=== PATIENT | male | born 1975 | race Caucasian/White ===

== ENCOUNTER 2017-01-09 17:21 | Inpatient (IN) | payer BC, OTHER ==
[~2017-01-09] VITALS: Ht 182.9 cm; Wt 128.9 kg
[~2017-01-09 17:21] MED LIST: NITROGLYCERIN 50 MG/D5W 250 ML BTL ONE
[2017-01-09 17:24] VITALS: Ht 182.9 cm; Wt 128.9 kg
[2017-01-09] MEDS ORDERED: PIPER-TAZO 3.375 GM IV (PMX) 100 ML IVPB STA (17:31)
[2017-01-09] MEDS ORDERED: SODIUM CHLORIDE 0.9% 1L BAG IV* STA (17:31)
[2017-01-09 17:57] LABS: ADD SCAN DIFF NO
[2017-01-09 17:59] LABS: BASOPHIL # 0.1 10^3/ul (0.0-0.1); BASOPHILS % 0.4 % (0.0-2.0); EOSINOPHILS # 0.1 10^3/ul (0.0-0.5); EOSINOPHILS % 0.6 % (0.0-7.0); HEMATOCRIT 43.1 % (42.0-52.0); HEMOGLOBIN 14.9 g/dl (14.0-18.0); LYMPHOCYTES # 2.1 10^3/ul (0.8-2.9); LYMPHOCYTES % 18.5 % (15.0-51.0); MEAN CORPUSCULAR HEMOGLOBIN 30.3 pg (29.0-33.0); MEAN CORPUSCULAR HGB CONC 34.6 g/dl (32.0-37.0); MEAN CORPUSCULAR VOLUME 87.8 fl (82.0-101.0); MEAN PLATELET VOLUME 11.9 fl (7.4-10.4); MONOCYTE # 0.6 10^3/ul (0.3-0.9); MONOCYTES % 4.9 % (0.0-11.0); NEUTROPHIL # 8.4 10^3/ul (1.6-7.5); PLATELET COUNT 232 10^3/UL (140-415); RED BLOOD COUNT 4.91 10^6/ul (4.70-6.10); RED CELL DISTRIBUTION WIDTH 12.8 % (11.5-14.5); WHITE BLOOD COUNT 11.2 10^3/ul (4.8-10.8)
[2017-01-09] MEDS ORDERED: LABETALOL HCL 20MG INJ IV ONE (18:00)
[2017-01-09] MEDS ORDERED: VANCOMYCIN 1 GM (PMX) 250 ML IVPB ONE (18:00)
[2017-01-09 18:08] LABS: INR 0.91; PARTIAL THROMBOPLASTIN TIME 25.4 Sec (25.0-35.0); PROTIME 12.3 Sec (12.2-14.2)
[2017-01-09 18:13] LABS: ALBUMIN 5.1 g/dl (3.3-4.9); ALBUMIN/GLOBULIN RATIO 1.7; BILIRUBIN,INDIRECT 0.2 mg/dl (0-1.1); BILIRUBIN,TOTAL 0.2 mg/dl (0.2-1.3); CALCIUM 9.4 mg/dl (8.4-10.2); CREATININE 1.33 mg/dl (0.61-1.24); TOTAL PROTEIN 8.1 g/dl (6.1-8.1)
[2017-01-09 18:24] LABS: CK-MB 2.52 ng/ml (0.0-2.4); TROPONIN-I 0.102 ng/ml (0.00-0.12)
[2017-01-09] MEDS ORDERED: hydrALAzine 20 MG INJ IV ONE ×2 (18:30→22:00)
--- NOTE | 2017-01-09 18:39 | RADRPT ---
PROCEDURE: XR Chest. CLINICAL INDICATION: Sepsis TECHNIQUE: Single AP view of the chest were obtained COMPARISON: None FINDINGS: The heart is prominently enlarged. The pulmonary vasculature are prominent. The aorta is obscured. Bilateral interstitial opacities are seen without focal consolidation. There is no pleural effusi on or pneumothorax. There is no gross acute osseous abnormality. IMPRESSION: Prominent cardiomegaly. Pulmonary vascular congestion and edema is present without consolidation, effusion, or pneumothorax. RPTAT: AA .Elena King MD, Date Time Electronically viewed and signed by .Elena King MD, on 01/09/2017 18:39 .J/
[2017-01-09] MEDS ORDERED: NITROGLYCERIN (SL) 0.4 MG TAB SL ONE (19:00)
[2017-01-09 19:22] LABS: ADD UMIC YES; URINE BILIRUBIN (Dip) NEGATIVE (NEGATIVE); URINE BLOOD (Dip) NEGATIVE (NEGATIVE); URINE COLOR LT. YELLOW (YELLOW); URINE GLUCOSE (Dip) NEGATIVE (NEGATIVE); URINE KETONES (Dip) NEGATIVE (NEGATIVE); URINE LEUKOCYTE ESTERASE (Dip) NEGATIVE (NEGATIVE); URINE NITRITE (Dip) NEGATIVE (NEGATIVE); URINE TOTAL PROTEIN (Dip) 1+ (NEGATIVE); URINE UROBILINOGEN (Dip) 0.2 E.U./dL (0.1-1.0)
[2017-01-09] MEDS ORDERED: FUROSEMIDE 20 MG INJ IV ONE (19:30)
[2017-01-09] MEDS ORDERED: ASPIRIN 81 MG TAB PO ONE (19:30)
[2017-01-09] MEDS ORDERED: LORAZEPAM 2 MG INJ IV ONE ×2 (19:30→22:00)
[2017-01-09] MEDS: NITROGLYCERIN 50 MG/D5W (PMX) 250 ML IV SCH (19:34)
[2017-01-09 19:36] LABS: MUCUS,URINE FEW; TRANSITIONAL EPI CELLS,URINE FEW; URINE RBCS NONE SEEN /HPF (0)
--- NOTE | 2017-01-09 20:05 | RADRPT ---
PROCEDURE: XR Chest. CLINICAL INDICATION: Chest pain TECHNIQUE: Single frontal chest x-ray. COMPARISON: 01/09/2017, 06:20 p.m. FINDINGS: No acute infiltrate, pleural effusion or pneumothorax is identified. There is stable moderate cardi omegaly and mild pulmonary vascular congestion. The osseous structures are unremarkable. IMPRESSION: 1. Stable moderate cardiomegaly and mild pulmonary vascular congestion. 2. No significant interval change. RPTAT: VV .Tod Vásquez MD, MD Date Time Electronically viewed and signed by .Tod Vásquez MD, MD on 01/09/2017 20:04 .R/
--- NOTE | 2017-01-09 20:12 | RADRPT ---
PROCEDURE: CT brain without contrast CLINICAL INDICATION: Headaches. High blood pressure TECHNIQUE: A CT of the brain was performed utilizing axial sections from the skull base through th e vertex without contrast. Sagittal and coronal images were also reformatted. The exam CTDIvol = 43. 58 mGy and DLP = 720.23 mGy-cm. COMPARISON: None available FINDINGS: No acute intracranial hemorrhage is identified. There is no mass effect or midline shift. No extra -axial fluid collection is seen. The ventricles and sulci are within normal limits for size and con figuration. The density of the brain is within normal limits. Jasmine-white differentiation is preser ashleigh. The osseous structures are unremarkable. Incidental benign sebaceous cyst is suspected within the sc alp anteriorly on the right The mastoid air cells and visualized paranasal sinuses are clear. Athero sclerotic calcification of the vertebral arteries at the foramen magnum is noted. RPTAT:HJJR IMPRESSION: 1. Unremarkable noncontrast CT of the brain. 2. Atherosclerotic calcification of the vertebral arteries. Physician Rob Date Time Electronically viewed and signed by Physician Rob on 01/09/2017 20:11 /
--- NOTE | 2017-01-09 20:16 | CONS ---
DATE OF ADMISSION: 01/09/2017 DATE OF CONSULTATION: 01/09/2017 REFERRING PHYSICIAN: Dr. Hopkins from the emergency room REASON FOR CONSULTATION: Rule out ST elevation myocardial infarction. CHIEF COMPLAINT: Not feeling well, short of breath, left-sided numbness. HISTORY OF PRESENT ILLNESS: Thank you for this referral. History obtained from the patient, valery cummings with Dr. Hopkins. This is a 41-year-old gentleman with history of coronary artery post-IL and PC I 3 years ago, currently taking no cardiac medication, history of severe hypertension who presented with above complaint. The patient said in the past 1 or 2 days, he has been not feeling well. Has had intermittent numbness in his left side. He also complained of shortness of breath and some ches t discomfort as well. Could not describe it well. Multiple EKGs were done. Code STEMI was activat ed because it was felt by the EKG, possibly a STEMI. The patient was immediately evaluated by loren juárez, appeared to be in respiratory distress and severe hypertension. Blood pressure has been as high as 268/162. Also chest x-ray showed congestive heart failure. EKG was personally reviewed, did not meet the criteria for a STEMI. STEMI was canceled. The patient to get a stat head CT to rule out CVA. PAST MEDICAL HISTORY: History of coronary artery disease, status post IL, status post PCI; history of hypertension, history of dyslipidemia. SOCIAL HISTORY: The patient stated he quit about a week ago. Has not followed any doctor over the past few years. Does not take any medication including does not even take aspirin. The patient occ asionally uses alcohol and does use marijuana, including today. FAMILY HISTORY: Possibly positive for coronary artery disease. ALLERGIES: NO REPORTED DRUG ALLERGIES. HAS HAD SOME REACTION TO SOME MEDICATION BEFORE BUT DOES NO T EVEN KNOW. REVIEW OF SYSTEMS: As above. PHYSICAL EXAMINATION: VITAL SIGNS: Temperature 98.4, heart rate of 93, blood pressure of 244/160, respiratory rate of 25, saturating 98%. HEENT: Normocephalic, atraumatic. Appears to be in respiratory distress and anxious. CARDIOVASCULAR: Tachycardic, systolic murmur. PULMONARY: With no wheezes. VASCULAR: Pulses bilaterally, 2+ radial. GASTROINTESTINAL: Obese, soft, nontender. EXTREMITIES: With trivial lower extremity edema. NEUROLOGIC: Awake, alert. LABORATORY: Sodium 145, potassium is 4, BUN of 18, creatinine 1.33, glucose of 148. Lactic acid 2. 6. Total CK 229. Troponin of 0.1. Albumin is 5.1. Chest x-ray was personally reviewed, which mary ellen wed pulmonary vascular congestion, congestive heart failure. EKG was personally reviewed, showed si nus tachycardia with LVH and ST-T abnormality suggestive of repolarization abnormalities. It does n ot meet the criteria for STEMI by my review. ASSESSMENT AND PLAN: 1. Hypertensive urgency. 2. Left-sided weakness, rule out acute cerebrovascular accident. 3. Chest pain, rule acute coronary syndrome. 4. History of coronary artery disease. 5. History of dyslipidemia. 6. Severe hypertension due to poor compliance. 7. Congestive heart failure, acute on chronic, probably related to diastolic heart failure and poss ibly even systolic heart failure. 8. History of tobacco use. 9. History of marijuana use. 10. Noncompliant with medication. RECOMMENDATIONS: The patient has received aspirin in the emergency room. At this point, I do not s ee any benefit from emergent cardiac catheterization. He needs to be stabilized. I have asked the nurses to start the patient on nitroglycerin drip and give a dose of Lasix. CT of the head also nee ds to be done to rule out acute CVA. Blood pressure control needs to be done better. We will obtai n serial cardiac enzymes and echocardiogram. The patient is to be admitted to ICU for close monitor ing. More than 35 minutes critical care time was spent in management of this patient excluding any proced ures. Dictated By: SRI RIVERS/CARMINA Conf#: [id number] DID#: [id number] CC: HERNAN HOPKINS DO;*EndCC*
--- NOTE | 2017-01-09 21:45 | ERA ---
ER Documentation Chief Complaint Date/Time DATE: 01/09/17 TIME: 21:39 Chief Complaint SHARP PAIN @ CHEST PAIN, DIZZINESS, HEADACHE, NAUSEA SINCE YESTERDAY HPI This 41-year-old male presents to the ER for sharp chest pain as well as dizziness headache and and nausea. This began all yesterday. The chest pain is left-sided and described as a sharpness. He has no nausea and has not vomited. He has had chills and he thinks he has had fevers and has had a new onset cough for the last few days.. He has been sweating. He has a history of cardiac stents. Patient has not been taking any medications lately. ROS All systems reviewed and are negative except as per history of present illness. Physical Exam Vitals Vital Signs Date Time Temp Pulse Resp B/P Pulse Ox O2 Delivery O2 Flow Rate FiO2 01/09/17 20:30 98.2 103 21 189/119 98 Nasal Cannula 4.0 01/09/17 19:30 98.2 103 21 189/129 98 Nasal Cannula 4.0 01/09/17 19:00 3.0 01/09/17 18:30 98.4 93 25 146/162 98 Nasal Cannula 2.0 01/09/17 18:25 98.6 97 16 244/159 100 01/09/17 18:00 Nasal Cannula 2 01/09/17 17:24 98.6 113 19 268/162 98 Physical Exam Const: [] Mild distress, appears uncomfortable Head: Atraumatic Eyes: Normal Conjunctiva ENT: Normal External Ears, Nose and Mouth. Neck: Full range of motion..~ No meningismus. Resp: Clear to auscultation bilaterally Cardio: Regular tachycardia, no murmurs Abd: Soft, non tender, non distended. Normal bowel sounds Skin: No petechiae or rashes, mildly diaphoretic Back: No midline or flank tenderness Ext: No cyanosis, or edema Neur: Awake and alert and oriented 3, no focal deficits, cranial nerves II through XII intact, cerebellar finger to nose normal Psych: Anxious Result Diagram: 01/09/17 1745 01/09/17 1745 Results 24 hrs Laboratory Tests Test 01/09/17 17:45 01/09/17 18:00 01/09/17 19:28 White Blood Count 11.210^3/ul Red Blood Count 4.9110^6/ul Hemoglobin 14.9g/dl Hematocrit 43.1% Mean Corpuscular Volume 87.8fl Mean Corpuscular Hemoglobin 30.3pg Mean Corpuscular Hemoglobin Concent 34.6g/dl Red Cell Distribution Width 12.8% Platelet Count 68209^3/UL Mean Platelet Volume 11.9fl Neutrophils % 75.0% Lymphocytes % 18.5% Monocytes % 4.9% Eosinophils % 0.6% Basophils % 0.4% Nucleated Red Blood Cells % 0.0/100WBC Neutrophils # 8.410^3/ul Lymphocytes # 2.110^3/ul Monocytes # 0.610^3/ul Eosinophils # 0.110^3/ul Basophils # 0.110^3/ul Nucleated Red Blood Cells # 0.010^3/ul Prothrombin Time 12.3Sec Prothrombin Time Ratio 1.0 INR International Normalized Ratio 0.91 Activated Partial Thromboplast Time 25.4Sec Sodium Level 145mmol/L Potassium Level 4.0mmol/L Chloride Level 109mmol/L Carbon Dioxide Level 24mmol/L Anion Gap 16 Blood Urea Nitrogen 18mg/dl Creatinine 1.33mg/dl Glucose Level 148mg/dl Lactic Acid Level 2.6mmol/L 2.6mmol/L Calcium Level 9.4mg/dl Total Bilirubin 0.2mg/dl Direct Bilirubin 0.00mg/dl Indirect Bilirubin 0.2mg/dl Aspartate Amino Transf (AST/SGOT) 25IU/L Alanine Aminotransferase (ALT/SGPT) 35IU/L Alkaline Phosphatase 83IU/L Creatine Kinase 229IU/L Creatine Kinase Index 1.1 Creatinine Kinase MB (Mass) 2.52ng/ml Troponin I 0.102ng/ml Total Protein 8.1g/dl Albumin 5.1g/dl Globulin 3.00g/dl Albumin/Globulin Ratio 1.70 Urine Color LT. YELLOW Urine Clarity CLEAR Urine pH 5.5 Urine Specific [place] 1.025 Urine Ketones NEGATIVE Urine Nitrite NEGATIVE Urine Bilirubin NEGATIVE Urine Urobilinogen 0.2 E.U./dL Urine Leukocyte Esterase NEGATIVE Urine Microscopic RBC NONE SEEN/HPF Urine Microscopic WBC 0-2/HPF Urine Transitional Epithelial Cells FEW Urine Mucus FEW Urine Hemoglobin NEGATIVE Urine Glucose NEGATIVE% Urine Total Protein 1+ Current Medications Medications (Trade) Dose Ordered Sig/Thao Route PRN Reason Start Time Stop Time Status Last Admin Dose Admin Sodium Chloride 3950 ml 3,950 ml BOLUS OVER 2 HOURS STAT IV* 01/09/17 17:31 01/09/17 17:36 DC 01/09/17 17:59 Vancomycin HCl 250 ml @ 125 mls/hr ONCE ONCE IVPB 01/09/17 18:00 01/09/17 19:59 DC 01/09/17 18:32 Piperacillin Sod/ Tazobactam Sod (Zosyn 3.375gm/ 100 ml (Pmx)) 100 ml @ 200 mls/hr ONCE STAT IVPB 01/09/17 17:31 01/09/17 18:00 DC 01/09/17 17:59 Labetalol HCl (Labetalol) 25 mg ONCE ONCE IV 01/09/17 18:00 01/09/17 18:01 DC 01/09/17 18:00 Hydralazine HCl (Apresoline) 20 mg ONCE ONCE IV 01/09/17 18:30 01/09/17 18:31 DC 01/09/17 18:33 Nitroglycerin (Nitroglycerin (Sl Tab) 0.4 Mg) 1 tab ONCE ONCE SL 01/09/17 19:00 01/09/17 19:01 DC 01/09/17 19:04 Aspirin 324 mg 324 mg ONCE ONCE PO 01/09/17 19:30 01/09/17 19:31 DC 01/09/17 19:08 Nitroglycerin/ Dextrose (Nitroglycerin 50 Mg/D5W (Pmx)) 250 ml @ 10 mls/hr TITRATE IV 01/09/17 19:30 01/09/17 19:34 Lorazepam (Ativan) 1 mg ONCE ONCE IV 01/09/17 19:30 01/09/17 19:31 DC 01/09/17 19:23 Furosemide (Lasix) 20 mg ONCE ONCE IV 01/09/17 19:30 01/09/17 19:31 DC 01/09/17 19:35 Procedures/MDM Hypertensive crisis with chest pain and sirs criteria without source. This point I do not think an infectious etiology is likely. Patient had refractory hypertension the required labetalol which produced no result followed by hydralazine 20 which helped followed by nitroglycerin drip she was able to bring the patient's blood pressure down. He was given aspirin. Head CT was obtained which showed no brain bleed. Patient did seem to decompensate acutely with severe chest pain after he had been here for some time. Repeat EKG showed ST elevation in aVR as well as ST depressions in lateral leads. I called Dr. Barragan who came and saw the patient did not believe this was a STEMI. He did recommend 20 mg of Lasix and continue nitro drip. Mild leukocytosis without evidence of pneumonia. Patient was given both vancomycin and Zosyn initially for aureus sepsis and ill-appearing patient with cough. Congestive heart failure seems more likely with tachycardia related to the stress of his chest pain and severe hypertension. Spoke with Dr. schmitt who will be admitting. EKG interpretation #1: Sinus tachycardia rate of 101, left axis deviation, LVH, normal intervals, no ST or T-wave changes concerning for acute ischemia. Nonspecific ST-T wave changes EKG interpretation #2: Sinus tachycardia rate of 105, ST elevation in aVR, lateral ST depressions, findings suspicious for ischemia, left axis deviation. real estate executive assistant interpretation: Sinus tachycardia without other arrhythmia Chest x-ray interpretation: Cardiomegaly with engorgement of pulmonary vasculature, no pneumothorax, no obvious infiltrates, no fractures acutely CT head interpretation: I see no acute process. I see no hemorrhage, no mass- effect, no midline shift, no skull fractures Critical care time 57 minutes: This includes treatment of hypertensive crisis and emergency with headache and severe chest pain, use of multiple vasoactive medications in attempt to reduce severe refractory hypertension, use of hydralazine, labetalol, nitroglycerin drip, chart reviewed, multiple visits the patient's bedside to reassess status, discussion with opera singer, discussion with admitting doctor and patient. This does not include billable procedures Departure Diagnosis: Primary Impression: Hypertensive crisis Additional Impressions: Congestive heart failure Renal insufficiency Chest pain Acute headache Condition: Critical HERNAN HOPKINS DO Jan 09, 2017 21:45
[2017-01-09] MEDS ORDERED: morphine 4 MG/ML VIAL IV STA (22:21)
[2017-01-09] MEDS ORDERED: NICARDipine HCL 30 MG CAPSULE PO ONE (22:30)
--- NOTE | 2017-01-09 22:53 | QN ---
Documentation Comment [id number] WHIT BINGHAM MD Jan 09, 2017 22:52
[2017-01-09] MEDS ORDERED: ASPIRIN 325 MG TAB PO ONE (23:00)
[2017-01-09] MEDS ORDERED: MAGNESIUM HYDROXIDE 30ML CUP PO PRN (23:00)
[2017-01-09] MEDS ORDERED: BISACODYL (EC) 5 MG TAB PO PRN (23:00)
[2017-01-09] MEDS ORDERED: DOCUSATE SODIUM 100 MG CAP PO PRN (23:00)
[2017-01-09] MEDS ORDERED: ALBUTEROL/IPRATROPIUM (NEB) 3 ML AMP NEB PRN (23:00)
[2017-01-09 23:13] LABS: CHOL/HDL RATIO 5.2 RATIO
[2017-01-09] MEDS: ONDANSETRON 4 MG INJ IV PRN (23:19)
[2017-01-09] MEDS: morphine 2 MG INJ IV PRN (23:19)
[2017-01-10] VITALS (76 sets, daily range): BP systolic 106–187; BP diastolic 57–149; PULSE 89–136; RESP 13–54; TEMP 98
[2017-01-10] MEDS ORDERED: PIPER-TAZO 3.375 GM IV (PMX) 100 ML IVPB ONE
--- NOTE | 2017-01-10 00:04 | HP ---
DATE OF ADMISSION: 01/09/2017 HISTORY OF PRESENT ILLNESS: The patient is a 41-year-old male who has a history of CAD and stent pl acement many years ago. Only takes aspirin. Otherwise, he does list his medication, presented with s hortness of breath and complaining of headache, chest pain. The patient's WBC 11.2, hematocrit 43.1 , sodium 145. The patient's blood pressure recorded as 244/159. The patient was started on nitro d rip and is being seen by Dr. Ventura in consultation for possible STEMI. The patient is being admitte d for further management. PAST MEDICAL HISTORY: Positive for hypertension, diabetic medicine, history of CAD, history of edwin ogram and stent placement. ALLERGY HISTORY: NEGATIVE. FAMILY HISTORY: Diabetes, hypertension. SOCIAL HISTORY: Negative at this point. MEDICATION HISTORY: Takes aspirin. REVIEW OF SYSTEMS HEENT: Headache and some sinus problem. RESPIRATORY: Cough, short of breath. CARDIOVASCULAR: ____ . ABDOMEN: Dyspepsia. EXTREMITIES: No swelling. CENTRAL NERVOUS SYSTEM: Unremarkable except as mentioned above. PHYSICAL EXAMINATION: GENERAL: Obese, overweight male, awake, alert. VITAL SIGNS: Pulse ____ , blood pressure is 189/119. HEAD: Atraumatic, normocephalic. Pupils equal, reactive to light. NECK: Supple. No JVD. LUNGS: With basilar rales, rhonchi noted. CARDIOVASCULAR: S1, S2 normal. ABDOMEN: Soft, obese, bowel sounds present, no palpable mass. EXTREMITIES: There is no cyanosis, clubbing, or edema. CENTRAL NERVOUS SYSTEM: The patient is awake, alert with no focal deficit. LABORATORY DATA: Shows sodium 141, potassium 4.0. Lactic acid 2.6. Creatinine kinase 229. The patient had a chest x-ray cardiomegaly, pulmonary vascular congestion. IMPRESSION: 1. Patient has acute malignant hypertension. 2. Ischemic heart disease or myocardial infarction. 3. History of coronary artery disease. 4. Pulmonary edema. 5. Infiltrate. 6. Acute kidney injury. 7. Coronary artery disease and stent placement. 8. Lactic acidosis. 9. Systemic inflammatory response syndrome. PLAN: To obtain lipid panel, 2D echo. Troponin will be sent. Aspirin, nitro, oxygen, bronchodilat or, antibiotic diuretic. Cardiology consultation. The patient will have lisinopril, Coreg, hydrala zine and QVAR. Orders were done. Dictated By: WHIT CHOE/NTS Conf#: [id number] DID#: [id number]
[2017-01-10] MEDS ORDERED: LABETALOL HCL 20MG INJ IV ONE (00:30)
[2017-01-10] MEDS ORDERED: ASPI-664 PO (00:55)
[2017-01-10] MEDS ORDERED: IBUP200C PO (00:55)
[2017-01-10 01:09] LABS: CK-MB 2.59 ng/ml (0.0-2.4)
[2017-01-10 01:10] LABS: TROPONIN-I 0.155 ng/ml (0.00-0.12)
[2017-01-10] MEDS: ALBUTEROL/IPRATROPIUM (NEB) 3 ML AMP NEB SCH ×6 (01:13→20:25)
[2017-01-10] MEDS ORDERED: LORAZEPAM 2 MG INJ IV ONE ×2 (02:30→17:00)
[2017-01-10] MEDS: NITROGLYCERIN 50 MG/D5W (PMX) 250 ML IV SCH ×5 (05:14→19:08)
[2017-01-10] MEDS: FUROSEMIDE 20 MG INJ IV SCH ×2 (05:44→17:58)
[2017-01-10] MEDS: PANTOPRAZOLE 40 MG INJ IV SCH (05:45)
[2017-01-10] MEDS: ACETAMINOPHEN 325 MG TAB PO PRN ×2 (05:45→14:51)
[2017-01-10] MEDS: morphine 2 MG INJ IV PRN ×4 (06:12→21:20)
[2017-01-10] MEDS: hydrALAzine 20 MG INJ IV PRN ×2 (06:20→16:54)
[2017-01-10 06:39] LABS: ADD SCAN DIFF NO
[2017-01-10 06:42] LABS: BASOPHIL # 0.1 10^3/ul (0.0-0.1); BASOPHILS % 0.4 % (0.0-2.0); EOSINOPHILS % 0.1 % (0.0-7.0); HEMATOCRIT 36.2 % (42.0-52.0); HEMOGLOBIN 12.5 g/dl (14.0-18.0); LYMPHOCYTES # 1.7 10^3/ul (0.8-2.9); LYMPHOCYTES % 11.9 % (15.0-51.0); MEAN CORPUSCULAR HEMOGLOBIN 30.5 pg (29.0-33.0); MEAN CORPUSCULAR HGB CONC 34.5 g/dl (32.0-37.0); MEAN CORPUSCULAR VOLUME 88.3 fl (82.0-101.0); MEAN PLATELET VOLUME 11.7 fl (7.4-10.4); MONOCYTE # 1.1 10^3/ul (0.3-0.9); MONOCYTES % 7.6 % (0.0-11.0); NEUTROPHIL # 11.1 10^3/ul (1.6-7.5); NEUTROPHILS % 79.5 % (39.0-77.0); PLATELET COUNT 218 10^3/UL (140-415); RED CELL DISTRIBUTION WIDTH 13.2 % (11.5-14.5)
[2017-01-10 07:10] LABS: CK-MB 8.85 ng/ml (0.0-2.4); TROPONIN-I 1.37 ng/ml (0.00-0.12)
[2017-01-10 07:51] LABS: ALBUMIN 4.4 g/dl (3.3-4.9); BILIRUBIN,INDIRECT 0.3 mg/dl (0-1.1); BILIRUBIN,TOTAL 0.3 mg/dl (0.2-1.3); CALCIUM 8.9 mg/dl (8.4-10.2); CREATININE 1.37 mg/dl (0.61-1.24); POTASSIUM 3.9 mmol/L (3.5-5.1); TOTAL PROTEIN 6.6 g/dl (6.1-8.1)
[2017-01-10 07:52] LABS: CHOL/HDL RATIO 4.3 RATIO; MAGNESIUM 1.7 mg/dl (1.7-2.5)
[2017-01-10 08:21] LABS: THYROID STIMULATING HORMONE 1.73 MIU/L (0.465-4.680)
[2017-01-10] MEDS ORDERED: LISINOPRIL 10 MG TAB PO SCH (09:00)
[2017-01-10] MEDS: ENOXAPARIN 40 MG/0.4 ML SYG SC SCH (09:48)
--- NOTE | 2017-01-10 10:30 | RADRPT ---
Echocardiogram Report Patient Name: YUMIKO PASTOR Gender: Male Date: 1975 Study Date: 10-Jan-2017 Logging Supervisor: Aleyda Reyes RDCS Location: [facility] Ref. Physician: WHIT BINGHAM Quality: Technically Difficult Study Procedures: Transthoracic echocardiogram with complete 2D, M-Mode, and doppler examination. Indications: Coronary Artery Disease. 2D/M Mode Doppler Measurement Value Normal Ranges Measurement Value Normal Ranges LVIDd 2D 6.9 3.5 - 5.6 cm AV Mean Mason 1.4 m/sec LVIDs 2D 4.2 2.1 - 4.1 cm AV Mean PG 10.0 mmHg FS 2D 39.9 % AV Peak Mason 2.3 m/sec LVPWd 2D 1.3 0.6 - 1.1 cm AV Peak PG 22.0 mmHg IVSd 2D 1.7 0.6 - 1.1 cm AV VTI 30.0 cm IVS/LVPW 2D 1.3 LVOT Mean Mason 1.3 m/sec AoR Diam 2D 3.4 2.0 - 3.7 cm LVOT Mean PG 8.0 mmHg LA/Ao 2D 1 0 - 1 LVOT Peak Mason 1.9 m/sec EDV 2D 329.0 cm3 LVOT Peak PG 14.0 mmHg ESV 2D 71.5 cm3 LVOT VTI 27.1 cm LA Dimen 2D 3.9 2.3 - 4.0 cm TR Peak Mason 2.0 m/sec TR Peak PG 16.0 mmHg RVSP 19.0 mmHg Findings Left Ventricle: Moderate concentric left ventricular hypertrophy. Severe enlargement of left ventricle cavity. Ejection fraction is visually estimated at 35 - 40 %. Multiple segmental wall motion abnormalities. Right Ventricle: Normal right ventricular size. Normal right ventricular systolic function. Left Atrium: The left atrium is normal in size. Right Atrium: The right atrium is normal in size. Mitral Valve: Normal appearance and function of the mitral valve with trace physiologic regurgitation. Aortic Valve: Aortic valve Max velocity 2.34 m/sec. Max PG 22.00 mmHg. Mean PG 10.00 mmHg. Aortic sclerosis without stenosis. Tricuspid Valve: Normal appearance of the tricuspid valve. Estimated peak PA systolic pressure 19 mmHg. There is trace tricuspid regurgitation. Pulmonic Valve: Pulmonic valve not well visualized. Pericardium: Trivial pericardial effusion. There is an anterior echo free space consistent with epicardial fat pad. Aorta: Normal aortic root. IVC: Normal size and normal respiratory collapse consistent with normal right atrial pressure. Conclusions 1.Moderate concentric left ventricular hypertrophy. Severe enlargement of left ventricle cavity. Ejection fraction is visually estimated at 35 - 40 %. Multiple segmental wall motion abnormalities. 2.The left atrium is normal in size. 3.Normal appearance and function of the mitral valve with trace physiologic regurgitation. 4.Aortic valve Max velocity 2.34 m/sec. Max PG 22.00 mmHg. Mean PG 10.00 mmHg. Aortic sclerosis without stenosis. 5.Normal appearance of the tricuspid valve. Estimated peak PA systolic pressure 19 mmHg. There is trace tricuspid regurgitation. 6.Normal size and normal respiratory collapse consistent with normal right atrial pressure. Electronically Signed By: Matheus Ventura 10-Jan-2017 10:29:28 -0700 Patient Name: YUMIKO PASTOR Study Date: 10-Jan-2017 [id number]
[2017-01-10] MEDS ORDERED: DIGOXIN 500 MCG INJ IV ONE (11:00)
[2017-01-10] MEDS: ASPIRIN (EC) 325 MG TAB PO SCH (11:28)
--- NOTE | 2017-01-10 11:40 | PN ---
DATE: 01/10/2017 CARDIOLOGY FOLLOWUP SUBJECTIVE: Discussed with the staff. Rhythm strip was reviewed. The patient remains in sinus rhy thm, sinus tachycardia. Had episodes of recurrent chest pain last night, the pain has resolved. He complains of left arm numbness. His left leg numbness has improved though. No weakness. He also appears to be pretty anxious as well. Still tachycardic. Still hypertensive ____ nitroglycerin dri p in the ICU. MEDICATIONS: Reviewed as per medication reconciliation, personally reviewed. PHYSICAL EXAMINATION: VITAL SIGNS: Temperature 98, heart rate of 120, blood pressure of 130/85, respiratory rate of 22, s aturating 99%. HEENT: Normocephalic, atraumatic. Obese gentleman. Appears to be anxious. On oxygen. CARDIOVASCULAR: Tachycardic. PULMONARY: With no wheezes heard. GASTROINTESTINAL: Obese, soft, nontender. EXTREMITIES: No significant lower extremity edema. NEUROLOGIC: Awake and alert. LABORATORY: Sodium 144, potassium 3.9, BUN of 19, creatinine 1.37, glucose of 116. Troponin has be en 0.15, 0.10, 1.37. Total CK has been 202, 229, 244 with MB fraction of 3.6. ProBNP of 2970, chol esterol 181, LDL of 119, HDL of 42. TSH 1.73. Echocardiogram was also personally reviewed which sh owed dilated left ventricle with ejection fraction of probably about 35% to 40%. There is moderate LVH noted as well. ASSESSMENT AND PLAN: 1. Ulu-LP-ojrsowlef myocardial infarction. 2. Hypertensive urgency. 3. Left-sided weakness, numbness, rule out acute cerebrovascular accident. 4. Coronary artery disease. 5. Noncompliance. 6. Dyslipidemia. 7. Congestive heart failure. 8. Coronary artery disease. 9. ____ cardiomyopathy. 10. History of tobacco ____ marijuana. 11. History of noncompliance with medications. RECOMMENDATIONS: I will increase the Coreg to 25 b.i.d., change the lisinopril to captopril, will c ontinue with the nitroglycerin and titrate it. I highly recommend neurology evaluation. Consider e julienne MRI. If no evidence of stroke is noted and cleared by neurology, we will schedule the patient f or cardiac catheterization. Meanwhile, we will continue with optimizing from the cardiac standpoint . Aspirin will be continued. Continue with the ICU care and nitroglycerin drip as needed. More than 40 minutes of critical care time was spent managing this patient excluding any procedures. Dictated By: SRI DE GUZMAN MD AV/NTS Conf#: [id number] DID#: [id number] CC: WHIT BINGHAM MD;*EndCC*
[2017-01-10] MEDS ORDERED: niCARdipine-D5W 0.1MG/ML DRIP 200 ML ONE (15:13)
[2017-01-10] MEDS ORDERED: niCARdipine-D5W 0.1MG/ML DRIP 200 ML IV SCH (15:30)
[2017-01-10] MEDS ORDERED: HYDROmorphONE 1 MG/ML SYG IV STA (17:41)
--- NOTE | 2017-01-10 23:25 | PN ---
Date/Time of Note Date/Time of Note DATE: 01/10/17 TIME: 23:24 Assessment/Plan VTE Prophylaxis VTE Prophylaxis Intervention: other Lines/Catheters IV [facility]ter Type (from [facility]): Saline Lock Urinary Cath still in place: No Assessment/Plan Chief Complaint/Hosp Course IMPRESSION: 1. Patient has acute malignant hypertension. 2. Ischemic heart disease or myocardial infarction. 3. History of coronary artery disease. 4. Pulmonary edema. 5. Infiltrate. 6. Acute kidney injury. 7. Coronary artery disease and stent placement. 8. Lactic acidosis. 9. Systemic inflammatory response syndrome plan pe cardio bp meds antibiotic mri Problems: Subjective 24 Hr Interval Summary Subjective hx not possible: other (headache+) Respiratory: no complaints Cardiovascular: no complaints Exam/Review of Systems Vital Signs Vitals Vital Signs Date Time Temp Pulse Resp B/P Pulse Ox O2 Delivery O2 Flow Rate FiO2 01/10/17 21:15 97 26 137/76 100 Nasal Cannula 01/10/17 21:00 3.0 01/10/17 19:30 97.8 01/10/17 01:17 21 Intake and Output 01/09/17 01/09/17 01/10/17 15:00 23:00 07:00 Intake Total 350 ml 4900 ml Output Total 600 ml 2400 ml Balance -250 ml 2500 ml Exam Respiratory: diminished breath sounds Cardiovascular: regular rate and rhythm Gastrointestinal: soft Musculoskeletal: nl extremities to inspection Extremities: normal pulses Results Result Diagram: 01/10/17 0632 01/10/17 0523 Results 24 hrs Laboratory Tests Test 01/10/17 05:23 01/10/17 06:32 Sodium Level 144 Potassium Level 3.9 Chloride Level 111 H Carbon Dioxide Level 21 Anion Gap 16 Blood Urea Nitrogen 19 Creatinine 1.37 H Glucose Level 116 Calcium Level 8.9 Magnesium Level 1.7 Total Bilirubin 0.3 Direct Bilirubin 0.00 Indirect Bilirubin 0.3 Aspartate Amino Transf (AST/SGOT) 30 Alanine Aminotransferase (ALT/SGPT) 31 Alkaline Phosphatase 62 Creatine Kinase 244 H Creatine Kinase Index 3.6 Creatinine Kinase MB (Mass) 8.85 H Troponin I 1.370 *H B-Type Natriuretic Peptide 2970 H Total Protein 6.6 # Albumin 4.4 Globulin 2.20 Albumin/Globulin Ratio 2.00 Triglycerides Level 99 Cholesterol Level 181 LDL Cholesterol, Calculated 119 HDL Cholesterol 42 Cholesterol/HDL Ratio 4.3 Thyroid Stimulating Hormone (TSH) 1.730 White Blood Count 14.0 #H Red Blood Count 4.10 L Hemoglobin 12.5 L Hematocrit 36.2 L Mean Corpuscular Volume 88.3 Mean Corpuscular Hemoglobin 30.5 Mean Corpuscular Hemoglobin Concent 34.5 Red Cell Distribution Width 13.2 Platelet Count 218 Mean Platelet Volume 11.7 H Neutrophils % 79.5 H Lymphocytes % 11.9 L Monocytes % 7.6 Eosinophils % 0.1 Basophils % 0.4 Nucleated Red Blood Cells % 0.0 Neutrophils # 11.1 H Lymphocytes # 1.7 Monocytes # 1.1 H Eosinophils # 0.0 Basophils # 0.1 Nucleated Red Blood Cells # 0.0 Free Thyroxine 1.25 Medications Medications Current Medications Nitroglycerin/ Dextrose (Nitroglycerin 50 Mg/D5W (Pmx)) 250 ml @ 10 mls/hr TITRATE IV Last administered on 01/10/17 19:08; Admin Dose 10 MLS/HR; Start 01/09/17 at 19:30 Ondansetron HCl (Zofran Inj) 4 mg Q6H PRN IV NAUSEA AND/OR VOMITING Last administered on 01/09/17 23:19; Admin Dose 4 MG; Start 01/09/17 at 23:00 Nitroglycerin (Nitroglycerin (Sl Tab) 0.4 Mg) 1 tab Q5M PRN SL CHEST PAIN; Start 01/09/17 at 23:00 Acetaminophen (Tylenol Tab) 650 mg Q6H PRN PO PAIN LEVEL 1-3 OR FEVER Last administered on 01/10/17 14:51; Admin Dose 650 MG; Start 01/09/17 at 23:00 Morphine Sulfate (morphine) 2 mg Q4H PRN IV PAIN LEVEL 7-10 Last administered on 01/10/17 21:20; Admin Dose 2 MG; Start 01/09/17 at 23:00 Docusate Sodium (Colace) 100 mg Q12H PRN PO CONSTIPATION; Start 01/09/17 at 23: 00 Magnesium Hydroxide (Milk Of Mag) 30 ml DAILY PRN PO CONSTIPATION; Start at 23:00 Bisacodyl (Dulcolax) 5 mg DAILY PRN PO CONSTIPATION; Start 01/09/17 at 23:00 Pantoprazole (Protonix Iv) 40 mg DAILY@06 IV Last administered on 01/10/17 05: 45; Admin Dose 40 MG; Start 01/10/17 at 06:00 Enoxaparin Sodium (Lovenox) 40 mg DAILY SC Last administered on 01/10/17 09:48 ; Admin Dose 40 MG; Start 01/10/17 at 09:00 Hydralazine HCl (Apresoline) 20 mg Q6 PRN IV sbp>170 Last administered on 16:54; Admin Dose 20 MG; Start 01/09/17 at 23:00 Furosemide (Lasix) 20 mg BID@06,18 IV Last administered on 01/10/17 17:58; Admin Dose 20 MG; Start 01/10/17 at 06:00 Carvedilol (Coreg) 25 mg BID PO Last administered on 01/10/17 21:19; Admin Dose 25 MG; Start 01/10/17 at 21:00 Captopril (Capoten) 50 mg TID PO Last administered on 01/10/17 21:18; Admin Dose 50 MG; Start 01/10/17 at 13:00 Aspirin 325 mg 325 mg DAILY PO Last administered on 01/10/17 11:28; Admin Dose 325 MG; Start 01/10/17 at 11:00 Nicardipine HCl/ Dextrose (Cardene Iv/D5W) 500 ml @ 50 mls/hr TITRATE IV Last administered on 01/10/17 18:07; Admin Dose 100 MLS/HR; Start 01/10/17 at 16:00 WHIT BINGHAM MD Jan 10, 2017 23:25
[2017-01-11] VITALS (79 sets, daily range): BP systolic 84–185; BP diastolic 62–135; PULSE 80–109; RESP 13–33
[2017-01-11] MEDS: morphine 2 MG INJ IV PRN ×5 (00:58→18:37)
[2017-01-11] MEDS: ALBUTEROL/IPRATROPIUM (NEB) 3 ML AMP NEB SCH ×6 (01:23→21:33)
[2017-01-11] MEDS: NITROGLYCERIN 50 MG/D5W (PMX) 250 ML IV SCH ×4 (02:25→18:37)
[2017-01-11] MEDS: ONDANSETRON 4 MG INJ IV PRN (05:21)
[2017-01-11 06:04] LABS: ADD SCAN DIFF NO
[2017-01-11 06:09] LABS: BASOPHIL # 0.1 10^3/ul (0.0-0.1); BASOPHILS % 0.4 % (0.0-2.0); EOSINOPHILS # 0.4 10^3/ul (0.0-0.5); EOSINOPHILS % 2.1 % (0.0-7.0); HEMATOCRIT 37.3 % (42.0-52.0); HEMOGLOBIN 12.7 g/dl (14.0-18.0); LYMPHOCYTES # 1.5 10^3/ul (0.8-2.9); LYMPHOCYTES % 9.2 % (15.0-51.0); MEAN CORPUSCULAR HEMOGLOBIN 30.5 pg (29.0-33.0); MEAN CORPUSCULAR VOLUME 89.7 fl (82.0-101.0); MEAN PLATELET VOLUME 12.1 fl (7.4-10.4); MONOCYTE # 1.5 10^3/ul (0.3-0.9); MONOCYTES % 8.6 % (0.0-11.0); NEUTROPHIL # 13.3 10^3/ul (1.6-7.5); NEUTROPHILS % 79.2 % (39.0-77.0); PLATELET COUNT 243 10^3/UL (140-415); RED BLOOD COUNT 4.16 10^6/ul (4.70-6.10); RED CELL DISTRIBUTION WIDTH 13.3 % (11.5-14.5); WHITE BLOOD COUNT 16.8 10^3/ul (4.8-10.8)
[2017-01-11] MEDS: PANTOPRAZOLE 40 MG INJ IV SCH (06:14)
[2017-01-11] MEDS: FUROSEMIDE 20 MG INJ IV SCH ×2 (06:15→17:28)
[2017-01-11 06:46] LABS: CK-MB 9.98 ng/ml (0.0-2.4); TROPONIN-I 4.91 ng/ml (0.00-0.12)
[2017-01-11 06:49] LABS: ALBUMIN 4.5 g/dl (3.3-4.9); ALBUMIN/GLOBULIN RATIO 1.6; BILIRUBIN,INDIRECT 1.2 mg/dl (0-1.1); BILIRUBIN,TOTAL 1.2 mg/dl (0.2-1.3); CALCIUM 9.4 mg/dl (8.4-10.2); CREATININE 1.38 mg/dl (0.61-1.24); MAGNESIUM 1.8 mg/dl (1.7-2.5); POTASSIUM 3.8 mmol/L (3.5-5.1); TOTAL PROTEIN 7.3 g/dl (6.1-8.1)
[2017-01-11 07:16] LABS: THYROID STIMULATING HORMONE 1.1 MIU/L (0.465-4.680)
--- NOTE | 2017-01-11 07:17 | RADRPT ---
PROCEDURE: MR Brain without contrast. CLINICAL INDICATION: Hypertensive crisis. Left arm numbness and difficulty swallowing TECHNIQUE: Sagittal and axial T1 weighted, axial T2 weighted, coronal GRE, axial diffusion weighte d with ADC mapping, and axial and sagittal FLAIR imaging without contrast. COMPARISON: 01/09/2017 FINDINGS: The study is significantly limited by motion artifact. On the diffusion sequence, there is a curvil inear focus of increased signal in the right posterior medulla with corresponding low signal seen on the ADC map. There is a suggestion of faint abnormal associated signal on the T2-weighted sequence . The axial FLAIR sequence is significantly motion degraded but there is a suggestion of abnormal s ignal on the sagittal FLAIR image. No other focus of restricted diffusion is seen. Background of a trophy and chronic microvascular ischemic change is again seen. Grossly patent intracranial flow vo ids again seen. The orbits are grossly unremarkable. The visualized paranasal sinuses and mastoids are clear.. IMPRESSION: Study limited by motion artifact but possible subtle subacute infarct in the posterior right medulla . No associated hemorrhage. RPTAT: HLBE Physician Nima Date Time Electronically viewed and signed by Physician Nima on 01/11/2017 07:16 LE/
[2017-01-11] MEDS: SPIRONOLACTONE 25 MG TAB PO SCH (08:37)
--- NOTE | 2017-01-11 08:41 | PN ---
DATE: 01/11/2017 CARDIOLOGY FOLLOWUP PROGRESS NOTE AND CRITICAL CARE NOTE SUBJECTIVE: Discussed with the staff. Rhythm strip was reviewed. The patient still remains hypert ensive on Cardene drip as well as nitroglycerin drip. Intermittently has complained of severe pain, appears ____ right arm where he has the IV site. Also complains of right-sided chest pain, no more left-sided chest pain or pressure. He complains of left arm numbness, though. MEDICATIONS: Reviewed as per medication reconciliation, personally reviewed. PHYSICAL EXAMINATION: VITAL SIGNS: Temperature 98.7, heart rate of 98, blood pressure 139/73, respiratory rate of 22, sat urating 100%. HEENT: Normocephalic, atraumatic. Obese gentleman. Pupils are equal. CARDIOVASCULAR: Regular rate and rhythm, systolic murmur. PULMONARY: With no wheezes heard. Minimal rhonchi. GASTROINTESTINAL: Obese, soft, nontender. EXTREMITIES: With trivial lower extremity edema. NEUROLOGIC: Awake, alert, oriented x3. PSYCHIATRIC: Agitated. LABORATORY: Shows sodium 135, potassium 3.8, BUN of 22, creatinine 1.38, glucose of 130, magnesium 1.8. ALT of 36. AST of 57. Troponin of 4.9 with CK up to 4.93 with MB fraction of only 9.98. Pro BNP of 2390. Cholesterol of 180, LDL of 124, HDL of 42. MRI of the brain per radiology report show ed ____ with possible start of subacute infarct in the posterior right medulla. No associated hemor rhage. ASSESSMENT: 1. [id number]-laypjhnqe myocardial infarction. 2. Hypertensive urgency. 3. Most likely cerebrovascular accident. 4. History of coronary artery disease and percutaneous coronary intervention. 5. History of noncompliance. 6. History of severe hypertension. 7. Dyslipidemia. 8. Congestive heart failure. 9. Severe ischemic cardiomyopathy. 10. History of tobacco use and marijuana use. 11. Encephalopathy and agitation. RECOMMENDATIONS: I will increase the captopril to 100 mg t.i.d. Will start the patient on Aldacton e as well. Electrolytes will be corrected as needed. Awaiting neurology recommendations. Once the patient is cleared from neurology standpoint, I will proceed with the cardiac catheterization. Williams l need to make sure that from neurological standpoint the patient is able to tolerate aspirin, Plavi x, most likely full anticoagulation as well. Coreg will be continued at a high dose. Try to titrat e off the Cardene drip and ____ titrate off the nitroglycerin as well. Aspirin and statin will be c ontinued. Chest x-ray will be repeated. We will continue with the current diuresis and adjust it a ccordingly. Follow up cardiac enzymes as well. Continue with the ICU care. More than 40 minutes of critical care time was spent in management of this patient excluding any pro cedures. Dictated By: SRI DE GUZMAN MD AV/NTS Conf#: [id number] DID#: [id number] CC: WHIT BINGHAM MD;*EndCC*
--- NOTE | 2017-01-11 10:21 | RADRPT ---
PROCEDURE: XR Chest AP portable CLINICAL INDICATION: CHF TECHNIQUE: An AP portable radiograph of the chest was submitted. COMPARISON: 01/09/2017 FINDINGS: Support Hardware: None Cardiovascular: The heart remains moderately enlarged but the pulmonary vasculature reflecting pulmo nary venous obstruction and with the aorta appearing tortuous. Lung Daily: The lung daily appear clear with no nodule, alveolar infiltrate, or interstitial promi nence evident. Pleural Spaces: No pneumothorax or pleural effusion is identified. Osseous Structures: The osseous structures appear intact. Soft Tissues: The soft tissues appear generous. IMPRESSION: 1. Persistent moderate cardiomegaly with aortic tortuosity and with the pulmonary vasculature refle cting pulmonary venous obstruction. 2. The lung daily and pleural spaces remain clear. Physician Sheron Date Time Electronically viewed and signed by Physician Sheron on 01/11/2017 10:21 /
[2017-01-11] MEDS: ACETAMINOPHEN 325 MG TAB PO PRN ×2 (10:38→19:57)
[2017-01-11] MEDS: ASPIRIN (EC) 325 MG TAB PO SCH (11:11)
[2017-01-11] MEDS: ENOXAPARIN 40 MG/0.4 ML SYG SC SCH (11:15)
[2017-01-11 15:30] LABS: ADD UMIC NO; URINE BILIRUBIN (Dip) NEGATIVE (NEGATIVE); URINE BLOOD (Dip) NEGATIVE (NEGATIVE); URINE COLOR LT. YELLOW (YELLOW); URINE GLUCOSE (Dip) NEGATIVE (NEGATIVE); URINE KETONES (Dip) NEGATIVE (NEGATIVE); URINE LEUKOCYTE ESTERASE (Dip) NEGATIVE (NEGATIVE); URINE NITRITE (Dip) NEGATIVE (NEGATIVE); URINE TOTAL PROTEIN (Dip) NEGATIVE (NEGATIVE); URINE UROBILINOGEN (Dip) 0.2 E.U./dL (0.1-1.0)
[2017-01-11 15:58] LABS: BARBITURATES Negative (NEGATIVE); BENZODIAZEPINES Negative (NEGATIVE); CANNABINOIDS Positive (NEGATIVE); COCAINE Negative (NEGATIVE); OPIATES Positive (NEGATIVE)
--- NOTE | 2017-01-11 17:50 | RADRPT ---
Vent Rate: 121 bpm RR Interval: 0 msec CO Interval: 150 msec QRS Duration: 112 msec QT Interval: 328 msec QTC Interval: 465 msec P-R-T [place]: 49 - -18 - 140 degrees Sinus tachycardia Left ventricular hypertrophy with repolarization abnormality Abnormal ECG Electronically Signed By: Abel Mccallum [id number]
--- NOTE | 2017-01-11 18:40 | PN ---
Date/Time of Note Date/Time of Note DATE: 01/11/17 TIME: 18:38 Assessment/Plan VTE Prophylaxis VTE Prophylaxis Intervention: other Lines/Catheters IV [facility]from [facility] Saline Lock Urinary Cath still in place: No Assessment/Plan Chief Complaint/Hosp Course IMPRESSION: 1. Patient has acute malignant hypertension.better 2. Ischemic heart disease or myocardial infarction. 3. History of coronary artery disease. 4. Pulmonary edema. 5. Infiltrate. 6. Acute kidney injury. 7. Coronary artery disease and stent placement. 8. Lactic acidosis. 9. Systemic inflammatory response syndrome 10 cva plan pe cardio bp meds antibiotic mri seen neuro pending Problems: Subjective 24 Hr Interval Summary ENT: no complaints Respiratory: shortness of breath (better) Cardiovascular: no complaints Gastrointestinal: no complaints Exam/Review of Systems Vital Signs Vitals Vital Signs Date Time Temp Pulse Resp B/P Pulse Ox O2 Delivery O2 Flow Rate FiO2 01/11/17 17:45 95 19 149/91 100 01/11/17 17:00 Room Air 01/11/17 16:53 21 01/11/17 16:15 98.3 01/11/17 05:37 3.0 Intake and Output 01/10/17 01/10/17 01/11/17 15:00 23:00 07:00 Intake Total 998 ml 1022 ml 1270 ml Output Total 700 ml 650 ml 920 ml Balance 298 ml 372 ml 350 ml Exam Neck: supple Respiratory: clear to auscultation Cardiovascular: regular rate and rhythm Gastrointestinal: bowel sounds, soft Results Result Diagram: 01/11/17 0510 01/11/17 0510 Results 24 hrs Laboratory Tests Test 01/11/17 05:10 01/11/17 13:55 White Blood Count 16.8 H Red Blood Count 4.16 L Hemoglobin 12.7 L Hematocrit 37.3 L Mean Corpuscular Volume 89.7 Mean Corpuscular Hemoglobin 30.5 Mean Corpuscular Hemoglobin Concent 34.0 Red Cell Distribution Width 13.3 Platelet Count 243 Mean Platelet Volume 12.1 H Neutrophils % 79.2 H Lymphocytes % 9.2 L Monocytes % 8.6 Eosinophils % 2.1 Basophils % 0.4 Nucleated Red Blood Cells % 0.0 Neutrophils # 13.3 H Lymphocytes # 1.5 Monocytes # 1.5 H Eosinophils # 0.4 Basophils # 0.1 Nucleated Red Blood Cells # 0.0 Sodium Level 135 Potassium Level 3.8 Chloride Level 100 # Carbon Dioxide Level 25 Anion Gap 14 Blood Urea Nitrogen 22 H Creatinine 1.38 H Glucose Level 130 Calcium Level 9.4 Magnesium Level 1.8 Total Bilirubin 1.2 Direct Bilirubin 0.00 Indirect Bilirubin 1.2 H Aspartate Amino Transf (AST/SGOT) 57 #H Alanine Aminotransferase (ALT/SGPT) 36 Alkaline Phosphatase 67 Creatine Kinase 493 #H Creatine Kinase Index 2.0 Creatinine Kinase MB (Mass) 9.98 H Troponin I 4.910 *H B-Type Natriuretic Peptide 2390 H Total Protein 7.3 Albumin 4.5 Globulin 2.80 Albumin/Globulin Ratio 1.60 Triglycerides Level 89 Cholesterol Level 188 LDL Cholesterol, Calculated 124 HDL Cholesterol 46 Cholesterol/HDL Ratio 4.0 Thyroid Stimulating Hormone (TSH) 1.100 Free Thyroxine 1.07 Urine Color LT. YELLOW Urine Clarity CLEAR Urine pH 5.0 Urine Specific [place] 1.010 Urine Ketones NEGATIVE Urine Nitrite NEGATIVE Urine Bilirubin NEGATIVE Urine Urobilinogen 0.2 E.U./dL Urine Leukocyte Esterase NEGATIVE Urine Hemoglobin NEGATIVE Urine Glucose NEGATIVE Urine Total Protein NEGATIVE Urine Opiates Screen Positive Urine Barbiturates Negative Urine Amphetamines Screen Negative Urine Benzodiazepines Screen Negative Urine Cocaine Screen Negative Urine Cannabinoids Positive Medications Medications Current Medications Nitroglycerin/ Dextrose (Nitroglycerin 50 Mg/D5W (Pmx)) 250 ml @ 10 mls/hr TITRATE IV Last administered on 01/11/17 18:37; Admin Dose 10 MLS/HR; Start 01/09/17 at 19:30 Ondansetron HCl (Zofran Inj) 4 mg Q6H PRN IV NAUSEA AND/OR VOMITING Last administered on 01/11/17 05:21; Admin Dose 4 MG; Start 01/09/17 at 23:00 Nitroglycerin (Nitroglycerin (Sl Tab) 0.4 Mg) 1 tab Q5M PRN SL CHEST PAIN; Start 01/09/17 at 23:00 Acetaminophen (Tylenol Tab) 650 mg Q6H PRN PO PAIN LEVEL 1-3 OR FEVER Last administered on 01/11/17 10:38; Admin Dose 650 MG; Start 01/09/17 at 23:00 Morphine Sulfate (morphine) 2 mg Q4H PRN IV PAIN LEVEL 7-10 Last administered on 01/11/17 18:37; Admin Dose 2 MG; Start 01/09/17 at 23:00 Docusate Sodium (Colace) 100 mg Q12H PRN PO CONSTIPATION; Start 01/09/17 at 23: 00 Magnesium Hydroxide (Milk Of Mag) 30 ml DAILY PRN PO CONSTIPATION Last administered on 01/11/17 05:29; Admin Dose 30 ML; Start 01/09/17 at 23:00 Bisacodyl (Dulcolax) 5 mg DAILY PRN PO CONSTIPATION; Start 01/09/17 at 23:00 Pantoprazole (Protonix Iv) 40 mg DAILY@06 IV Last administered on 01/11/17 06: 14; Admin Dose 40 MG; Start 01/10/17 at 06:00 Enoxaparin Sodium (Lovenox) 40 mg DAILY SC Last administered on 01/11/17 11:15 ; Admin Dose 40 MG; Start 01/10/17 at 09:00 Hydralazine HCl (Apresoline) 20 mg Q6 PRN IV sbp>170 Last administered on 16:54; Admin Dose 20 MG; Start 01/09/17 at 23:00 Furosemide (Lasix) 20 mg BID@06,18 IV Last administered on 01/11/17 17:28; Admin Dose 20 MG; Start 01/10/17 at 06:00 Carvedilol (Coreg) 25 mg BID PO Last administered on 01/11/17 08:37; Admin Dose 25 MG; Start 01/10/17 at 21:00 Aspirin 325 mg 325 mg DAILY PO Last administered on 01/11/17 11:11; Admin Dose 325 MG; Start 01/10/17 at 11:00 Nicardipine HCl/ Dextrose (Cardene Iv/D5W) 500 ml @ 50 mls/hr TITRATE IV Last administered on 01/11/17 04:46; Admin Dose 100 MLS/HR; Start 01/10/17 at 16:00 Captopril (Capoten) 100 mg TID PO Last administered on 01/11/17 12:28; Admin Dose 100 MG; Start 01/11/17 at 09:00 Spironolactone (Aldactone) 25 mg DAILY PO Last administered on 01/11/17 08:37; Admin Dose 25 MG; Start 01/11/17 at 09:00 WHIT BINGHAM MD Jan 11, 2017 18:40
[2017-01-11] MEDS: NITROGLYCERIN (SL) 0.4 MG TAB SL PRN ×2 (20:03→20:16)
[2017-01-11] MEDS ORDERED: HYDROmorphONE 4 MG/ML SYG IV PRN (20:30)
[2017-01-11] MEDS ORDERED: morphine 2 MG INJ IV ONE (21:00)
[2017-01-11] MEDS: ATORVASTATIN 80 MG TAB PO SCH (21:07)
[2017-01-11 21:24] LABS: CK-MB 4.82 ng/ml (0.0-2.4); TROPONIN-I 3.56 ng/ml (0.00-0.12)
--- NOTE | 2017-01-11 21:48 | CONS ---
DATE OF ADMISSION: 01/09/2017 DATE OF CONSULTATION: 01/11/2017 TYPE OF CONSULTATION: Neurological. Thank you, Dr. Ferrer, for your kind referral for evaluation of stroke. HISTORY OF PRESENT ILLNESS: The patient is a 42-year-old gentleman who was admitted day before yest devon. He has history of myocardial infarction and stent placement about 3 years ago as well as hyp ertension. He stated that he was not taking any medications but different natural supplements with exception of aspirin, which he was taking on daily basis. He presented with a few days of not feeli ng well, complaining of intermittent numbness on the left side, also shortness of breath, chest disc omfort. On admission, very high blood pressure as 268/162. Congestive heart failure on chest x-ray . Software Configuration Manager was seeing him. The patient also complains of a droopy right eye, intermittent doub le vision. He was complaining of headaches and also intermittent dizziness. He already has MRI of the brain which shows presence of a right medullary stroke. EKG: Sinus rhythm. Echocardiogram was done showing moderate concentric right ventricular hypertrophy, enlargement of left ventricular cav ity, ejection fraction 35 to 40. Software Configuration Manager, Dr. Ventura, is on case. Currently patient complains of pain in the right arm radiating to the shoulder and upper chest area. He stated that has been present since some IV site was infiltrated like couple days ago. He recei ves morphine 2 mg, and it does not seem to help him. Other medications currently: 1. Captopril. 2. Aldactone. 3. Coreg. 4. Nifedipine for blood pressure, systolic below 160. 5. Still on aspirin. 6. He is on Lovenox for DVT prevention. 7. Protonix. 8. Lasix. ALLERGIES: NONE. SOCIAL HISTORY: Social alcohol and marijuana. FAMILY HISTORY: Coronary artery disease. LABORATORY DATA: The patient's labs show WBC count 16.8, hemoglobin 12.7, hematocrit 37.3, neutroph ils 79%. BUN 22, creatinine 1.38 today. Indirect bilirubin 1.2, AST 57. CK 493. Troponin is elev ated, 4.9. BNP 3900. Rest of comprehensive metabolic panel within normal limits. Cholesterol 188, LDL 124. TSH within normal limits as well. Tox screen was positive for opiates and marijuana. Ur inalysis negative. PT, PTT within normal limits. REVIEW OF SYSTEMS: I forgot to mention that patient has problems swallowing and he is currently n.p .o. PHYSICAL EXAMINATION: VITAL SIGNS: Temperature 98.3, pulse 89, respirations 23, blood pressure 139/91. GENERAL: Not in acute distress, lying in bed. HEENT: Normocephalic, atraumatic head. NECK: No carotid bruits. No thyromegaly. LUNGS: Clear to auscultation bilaterally. CARDIAC: Normal cardiac rhythm and sounds. ABDOMEN: Soft, nontender. EXTREMITIES: No cyanosis, clubbing or edema. NEUROLOGIC: He is awake, alert and oriented x3 with fluent speech. He seemed to be in discomfort s econdary to upper chest and right shoulder pain which he is constantly massaging. Fluent speech. C ranial nerve examination shows intact visual daily bilaterally. Pupils about 2 mm, fixed. Extraoc ular movements intact. Gaze horizontal, not sustained nystagmus was observed. Essentially symmetri nia face. Normal facial strength and decreased sensation on the left hemiface to temperature and pa in. Tongue is in midline. Palate elevates symmetrically. Motor strength examination shows normal bulk, strength and tone throughout. Sensory examination shows diminution of perception of vibration , temperature, pinprick and touch in the left upper and lower extremities. Deep tendon reflexes 2+ upper extremities and knees. Absent ankle jerks. Downgoing toes bilaterally. Coordination preserv ed on [id number] testing. No dysmetria or tremor. Gait was not assessed. IMPRESSION: 1. Acute ischemic stroke, several days' duration in the right medullar area. 2. Myocardial infarction. 3. Hypertensive urgency. 4. Ischemic cardiomyopathy. 5. History of tobacco and marijuana use. Keep patient normotensive and euglycemic. Will start when he passes swallow study patient on statin . Swallow study is pending. Given chest pain or musculoskeletal pain in the right shoulder and upp er chest area which is somewhat reproducible by deep palpation and not responsive to morphine, will start on Dilaudid 1 mg p.r.n. Will obtain MRA of the brain and neck for further evaluation. Physic al therapy when patient stable for it. Continue current treatment otherwise. 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 I forgot to mention that he has, on top of absence of ankle jocelyn ks, somewhat diminished perception of pinprick and vibration in the right foot and hand. Will check hemoglobin A1c level. Thank you very much for this interesting consultation. Dictated By: AGUILA JULIAN/CARMINA Conf#: [id number] DID#: [id number]
[2017-01-12] VITALS (83 sets, daily range): BP systolic 106–199; BP diastolic 37–129; PULSE 70–101; RESP 16–34
[2017-01-12] MEDS: NITROGLYCERIN 50 MG/D5W (PMX) 250 ML IV SCH ×4 (00:09→20:06)
[2017-01-12] MEDS: morphine 2 MG INJ IV PRN ×3 (00:29→13:07)
[2017-01-12] MEDS: ALBUTEROL/IPRATROPIUM (NEB) 3 ML AMP NEB SCH ×6 (00:43→21:44)
[2017-01-12] MEDS: PANTOPRAZOLE 40 MG INJ IV SCH (06:01)
[2017-01-12] MEDS: FUROSEMIDE 20 MG INJ IV SCH ×2 (06:02→18:41)
[2017-01-12 06:53] LABS: ADD SCAN DIFF NO
[2017-01-12 07:00] LABS: BASOPHIL # 0.1 10^3/ul (0.0-0.1); BASOPHILS % 0.4 % (0.0-2.0); EOSINOPHILS # 0.4 10^3/ul (0.0-0.5); EOSINOPHILS % 3.7 % (0.0-7.0); HEMATOCRIT 33.3 % (42.0-52.0); HEMOGLOBIN 11.6 g/dl (14.0-18.0); LYMPHOCYTES # 1.4 10^3/ul (0.8-2.9); LYMPHOCYTES % 12.3 % (15.0-51.0); MEAN CORPUSCULAR HEMOGLOBIN 30.9 pg (29.0-33.0); MEAN CORPUSCULAR HGB CONC 34.8 g/dl (32.0-37.0); MEAN CORPUSCULAR VOLUME 88.8 fl (82.0-101.0); MONOCYTE # 1.1 10^3/ul (0.3-0.9); MONOCYTES % 9.3 % (0.0-11.0); NEUTROPHIL # 8.5 10^3/ul (1.6-7.5); NEUTROPHILS % 73.7 % (39.0-77.0); PLATELET COUNT 203 10^3/UL (140-415); RED BLOOD COUNT 3.75 10^6/ul (4.70-6.10); WHITE BLOOD COUNT 11.6 10^3/ul (4.8-10.8)
[2017-01-12 07:29] LABS: ALBUMIN 4.3 g/dl (3.3-4.9); ALBUMIN/GLOBULIN RATIO 1.72; BILIRUBIN,INDIRECT 0.5 mg/dl (0-1.1); BILIRUBIN,TOTAL 0.5 mg/dl (0.2-1.3); CALCIUM 9.3 mg/dl (8.4-10.2); CREATININE 1.41 mg/dl (0.61-1.24); MAGNESIUM 2.1 mg/dl (1.7-2.5); POTASSIUM 4.3 mmol/L (3.5-5.1); TOTAL PROTEIN 6.8 g/dl (6.1-8.1)
[2017-01-12 07:49] LABS: CK-MB 3.35 ng/ml (0.0-2.4); TROPONIN-I 3.36 ng/ml (0.00-0.12)
--- NOTE | 2017-01-12 08:09 | PN ---
DATE: 01/12/2017 CARDIOLOGY FOLLOWUP SUBJECTIVE: Discussed with the staff. Rhythm strip was reviewed. The patient remains in sinus rhy thm, sinus tachycardia. No chest pain, no pressure on the left side overnight. Has had intermitten t right-sided chest pain and arm pain. Still complaining of numbness. Still in the ICU, on a nitro glycerin drip. Cardene drip is off though. MEDICATIONS: Reviewed, as per medication reconciliation, which was personally reviewed. PHYSICAL EXAMINATION: VITAL SIGNS: Temperature 98.4, heart rate of 74, blood pressure 150/90, respiratory rate of 17, sat urating 96%. HEENT: Normocephalic, atraumatic. Obese gentleman. Appears to be anxious. CARDIOVASCULAR: Regular rate and rhythm, a systolic murmur. PULMONARY: With no wheezes heard now. Minimal rhonchi at the base. GASTROINTESTINAL: Soft, nontender. EXTREMITIES: No significant lower extremity edema. NEUROLOGIC: Awake, alert, oriented x3. PSYCHIATRIC: Anxious. DERMATOLOGIC: No active bleeding. LABORATORY: Sodium 135, potassium 3.8, BUN of 22, creatinine 1.38, glucose of 130, AST of 57, ALT o f 36. Troponin is 3.56 as of last night. Chest x-ray done yesterday shows moderate cardiomegaly, a ortic tortuosity, pulmonary pulmonary venous obstruction. ASSESSMENT AND PLAN: 1. Yuo-KW-iqeuzqrye myocardial infarction. 2. Severe cardiomyopathy, appears to be ischemic. 3. Hypertensive heart disease and severe hypertensive urgency. 4. Acute/subacute cerebrovascular accident. 5. Dyslipidemia. 6. Morbid obesity. 7. Anxiety. 8. History of tobacco and marijuana use. RECOMMENDATIONS: Will continue with the current dose of captopril and carvedilol. Aldactone was ad ded as well. Will replace electrolytes as needed. Follow with neurology recommendations. MRI has been ordered. If okay with neurology, will plan for diagnostic left heart catheterization, coronary angiography, and possible percutaneous coronary intervention. Risks and alternatives were discusse d with the patient in detail, the risks including infection, vascular complications, bleeding compli cations, [place], stroke, arrhythmia, , renal failure, etc., was discussed with the patient. The luis navarro consented to the procedure. Awaiting neurology clearance for the procedure. Will monitor jennifer ceballos in the ICU. A nitroglycerin drip will be continued as well. Aspirin will be continued. More than 40 minutes of critical care time was spent managing this patient, excluding any procedures . Dictated By: SRI DE GUZMAN MD AV/NTS Conf#: [id number] DID#: [id number] CC: WHIT BINGHAM MD;*EndCC*
[2017-01-12] MEDS: HYDROmorphONE 1 MG/ML SYG IV PRN ×3 (08:20→21:27)
[2017-01-12] MEDS: ACETYLCYSTEINE 600 MG CAP PO SCH ×2 (08:21→20:34)
[2017-01-12] MEDS: SPIRONOLACTONE 25 MG TAB PO SCH (08:22)
[2017-01-12] MEDS: ASPIRIN (EC) 325 MG TAB PO SCH (08:27)
[2017-01-12] MEDS: ENOXAPARIN 40 MG/0.4 ML SYG SC SCH (08:28)
[2017-01-12] MEDS: LORAZEPAM 2 MG INJ IV PRN (10:54)
--- NOTE | 2017-01-12 12:22 | RADRPT ---
PROCEDURE: MRA Head and neck without contrast. CLINICAL INDICATION: Neurologic deficit TECHNIQUE: MRA of the brain and neck was performed utilizing 3-D [id number] imaging without in travenous contrast. Source and MIP images were reviewed. COMPARISON: Brain MRI 01/10/2017 FINDINGS: Study is markedly degraded by motion artifact. MRA NECK: The great vessel origins were not included in the field of view. No significant stenosis identified at the cervical segments of the bilateral vertebral arteries or visualized common carotid arteries. There is a tortuous course of the bilateral upper cervical internal carotid arteries without convin cing significant cervical arterial stenosis. MRA BRAIN: Focal narrowing of the right intradural vertebral artery (series 8 image 111, series 4 image 36). F low signal seen within the visualized left vertebral artery and basilar artery. Limited flow signal in the left distal FLAT BED OPERATOR likely artifactual. No anterior circulation large vessel occlusion. A feta l origin right FLAT BED OPERATOR or prominent right posterior communicating artery is seen. IMPRESSION: Study is markedly degraded by motion artifact. MRA NECK: Tortuous course of the bilateral upper cervical internal carotid arteries. No definite stenosis. MRA BRAIN: Focal narrowing of the right intradural vertebral artery. Consider CT angiogram head and neck for fu rther evaluation. Limited flow signal in the left distal FLAT BED OPERATOR is likely artifactual. No anterior circulation large vessel occlusion. RPTAT: AA .Sim Vigil MD, Date Time Electronically viewed and signed by .Sim Vigil MD, MD on 01/12/2017 12:22 .T/
--- NOTE | 2017-01-12 12:22 | RADRPT ---
PROCEDURE: MRA Head and neck without contrast. CLINICAL INDICATION: Neurologic deficit TECHNIQUE: MRA of the brain and neck was performed utilizing 3-D [id number] imaging without in travenous contrast. Source and MIP images were reviewed. COMPARISON: Brain MRI 01/10/2017 FINDINGS: Study is markedly degraded by motion artifact. MRA NECK: The great vessel origins were not included in the field of view. No significant stenosis identified at the cervical segments of the bilateral vertebral arteries or visualized common carotid arteries. There is a tortuous course of the bilateral upper cervical internal carotid arteries without convin cing significant cervical arterial stenosis. MRA BRAIN: Focal narrowing of the right intradural vertebral artery (series 8 image 111, series 4 image 36). F low signal seen within the visualized left vertebral artery and basilar artery. Limited flow signal in the left distal SIDE PULLER likely artifactual. No anterior circulation large vessel occlusion. A feta l origin right SIDE PULLER or prominent right posterior communicating artery is seen. IMPRESSION: Study is markedly degraded by motion artifact. MRA NECK: Tortuous course of the bilateral upper cervical internal carotid arteries. No definite stenosis. MRA BRAIN: Focal narrowing of the right intradural vertebral artery. Consider CT angiogram head and neck for fu rther evaluation. Limited flow signal in the left distal SIDE PULLER is likely artifactual. No anterior circulation large vessel occlusion. RPTAT: AA .Sim Vigil MD, Date Time Electronically viewed and signed by .Sim Vigil MD, MD on 01/12/2017 12:22 .T/
[2017-01-12] MEDS ORDERED: BARIUM SULFATE 135 ML (E-Z HD) PO ONE (12:30)
--- NOTE | 2017-01-12 13:04 | RADRPT ---
PROCEDURE: Video swallow examination of the esophagus CLINICAL INDICATION: Dysphagia, CVA TECHNIQUE: Real time video cine fluoroscopy of the lateral neck was performed. The patient was gi julienne barium in multiple different consistencies by the speech pathologist. Fluoroscopy time: 2.3 min Number of images/cine sequences: 21 COMPARISON: None. FINDINGS: There is pooling of contrast in the vallecula and piriform sinus with penetration. There is evidence of silent aspiration with thin liquids via straw. IMPRESSION: Pooling of contrast in the vallecula and piriform sinus with penetration. Positive for aspiration with thin liquids via straw. Please refer to the speech pathology notes for more information and recommendations. RPTAT: KK .Aryan Denson MD, MD Date Time Electronically viewed and signed by .Aryan Denson MD, on 01/12/2017 13:03 .S/
--- NOTE | 2017-01-12 17:58 | PN ---
Date/Time of Note Date/Time of Note DATE: 01/12/17 TIME: 17:56 Assessment/Plan VTE Prophylaxis VTE Prophylaxis Intervention: other Lines/Catheters IV C[facility] Type (from [facility] Peripheral IV Urinary Cath still in place: No Assessment/Plan Chief Complaint/Hosp Course IMPRESSION: 1. Patient has acute malignant hypertension.better 2. Ischemic heart disease or myocardial infarction. 3. History of coronary artery disease. 4. Pulmonary edema. 5. Infiltrate. 6. Acute kidney injury. 7. Coronary artery disease and stent placement. 8. Lactic acidosis. 9. Systemic inflammatory response syndrome 10 cva plan per cardio bp meds antibiotic mri seen per neuro Problems: Subjective 24 Hr Interval Summary Respiratory: no complaints Cardiovascular: no complaints Gastrointestinal: No diarrhea, No nausea Exam/Review of Systems Vital Signs Vitals Vital Signs Date Time Temp Pulse Resp B/P Pulse Ox O2 Delivery O2 Flow Rate FiO2 01/12/17 16:30 86 23 169/107 Room Air 01/12/17 16:24 96 21 01/12/17 16:00 98.7 01/11/17 05:37 3.0 Intake and Output 01/11/17 01/11/17 01/12/17 14:59 22:59 06:59 Intake Total 1343 ml 1114 ml 689 ml Output Total 2100 ml 2650 ml 800 ml Balance -757 ml -1536 ml -111 ml Exam Neck: supple Respiratory: clear to auscultation Cardiovascular: regular rate and rhythm Gastrointestinal: soft Musculoskeletal: nl extremities to inspection Results Result Diagram: 01/12/17 0537 01/12/17 0537 Results 24 hrs Laboratory Tests Test 01/11/17 20:49 01/12/17 05:37 Creatine Kinase 447 H 376 H Creatine Kinase Index 1.1 0.9 Creatinine Kinase MB (Mass) 4.82 H 3.35 H Troponin I 3.560 *H 3.360 *H White Blood Count 11.6 #H Red Blood Count 3.75 L Hemoglobin 11.6 L Hematocrit 33.3 L Mean Corpuscular Volume 88.8 Mean Corpuscular Hemoglobin 30.9 Mean Corpuscular Hemoglobin Concent 34.8 Red Cell Distribution Width 13.0 Platelet Count 203 Mean Platelet Volume 12.0 H Neutrophils % 73.7 Lymphocytes % 12.3 L Monocytes % 9.3 Eosinophils % 3.7 Basophils % 0.4 Nucleated Red Blood Cells % 0.0 Neutrophils # 8.5 H Lymphocytes # 1.4 Monocytes # 1.1 H Eosinophils # 0.4 Basophils # 0.1 Nucleated Red Blood Cells # 0.0 Sodium Level 136 Potassium Level 4.3 Chloride Level 102 Carbon Dioxide Level 28 Anion Gap 10 Blood Urea Nitrogen 24 H Creatinine 1.41 H Glucose Level 114 Calcium Level 9.3 Magnesium Level 2.1 Total Bilirubin 0.5 Direct Bilirubin 0.00 Indirect Bilirubin 0.5 Aspartate Amino Transf (AST/SGOT) 38 Alanine Aminotransferase (ALT/SGPT) 32 Alkaline Phosphatase 56 B-Type Natriuretic Peptide 618 H Total Protein 6.8 Albumin 4.3 Globulin 2.50 Albumin/Globulin Ratio 1.72 Medications Medications Current Medications Nitroglycerin/ Dextrose (Nitroglycerin 50 Mg/D5W (Pmx)) 250 ml @ 10 mls/hr TITRATE IV Last administered on 01/12/17 14:42; Admin Dose 10 MLS/HR; Start 01/09/17 at 19:30 Ondansetron HCl (Zofran Inj) 4 mg Q6H PRN IV NAUSEA AND/OR VOMITING Last administered on 01/11/17 05:21; Admin Dose 4 MG; Start 01/09/17 at 23:00 Nitroglycerin (Nitroglycerin (Sl Tab) 0.4 Mg) 1 tab Q5M PRN SL CHEST PAIN Last administered on 01/11/17 20:16; Admin Dose 1 TAB; Start 01/09/17 at 23:00 Acetaminophen (Tylenol Tab) 650 mg Q6H PRN PO PAIN LEVEL 1-3 OR FEVER Last administered on 01/11/17 19:57; Admin Dose 650 MG; Start 01/09/17 at 23:00 Morphine Sulfate (morphine) 2 mg Q4H PRN IV MILD TO MODERATE Last administered on 01/12/17 13:07; Admin Dose 2 MG; Start 01/09/17 at 23:00 Docusate Sodium (Colace) 100 mg Q12H PRN PO CONSTIPATION; Start 01/09/17 at 23: 00 Magnesium Hydroxide (Milk Of Mag) 30 ml DAILY PRN PO CONSTIPATION Last administered on 01/11/17 05:29; Admin Dose 30 ML; Start 01/09/17 at 23:00 Bisacodyl (Dulcolax) 5 mg DAILY PRN PO CONSTIPATION; Start 01/09/17 at 23:00 Pantoprazole (Protonix Iv) 40 mg DAILY@06 IV Last administered on 01/12/17 06: 01; Admin Dose 40 MG; Start 01/10/17 at 06:00 Enoxaparin Sodium (Lovenox) 40 mg DAILY SC Last administered on 01/12/17 08:28 ; Admin Dose 40 MG; Start 01/10/17 at 09:00 Hydralazine HCl (Apresoline) 20 mg Q6 PRN IV sbp>170 Last administered on 16:54; Admin Dose 20 MG; Start 01/09/17 at 23:00 Furosemide (Lasix) 20 mg BID@06,18 IV Last administered on 01/12/17 06:02; Admin Dose 20 MG; Start 01/10/17 at 06:00 Carvedilol (Coreg) 25 mg BID PO Last administered on 01/12/17 08:21; Admin Dose 25 MG; Start 01/10/17 at 21:00 Aspirin 325 mg 325 mg DAILY PO Last administered on 01/12/17 08:27; Admin Dose 325 MG; Start 01/10/17 at 11:00 Nicardipine HCl/ Dextrose (Cardene Iv/D5W) 500 ml @ 50 mls/hr TITRATE IV Last administered on 01/11/17 04:46; Admin Dose 100 MLS/HR; Start 01/10/17 at 16:00 Captopril (Capoten) 100 mg TID PO Last administered on 01/12/17 13:14; Admin Dose 100 MG; Start 01/11/17 at 09:00 Spironolactone (Aldactone) 25 mg DAILY PO Last administered on 01/12/17 08:22; Admin Dose 25 MG; Start 01/11/17 at 09:00 Hydromorphone HCl (Dilaudid) 1 mg Q4H PRN IV SEVERE PAIN Last administered on 16:06; Admin Dose 1 MG; Start 01/12/17 at 00:30 Atorvastatin Calcium (Lipitor) 80 mg HS PO Last administered on 01/11/17 21:07 ; Admin Dose 80 MG; Start 01/11/17 at 21:00 Acetylcysteine (Nac) 600 mg BID PO Last administered on 01/12/17 08:21; Admin Dose 600 MG; Start 01/12/17 at 09:00 Lorazepam (Ativan) 1 mg Q6H PRN IV ANXIETY Last administered on 01/12/17t 10:54 ; Admin Dose 1 MG; Start 01/12/17 at 10:00 WHIT BINGHAM MD Jan 12, 2017 17:58
--- NOTE | 2017-01-12 18:33 | RADRPT ---
PROCEDURE: Retroperitoneal US. CLINICAL INDICATION: Acute renal insufficiency, abnormal labs TECHNIQUE: Multiple sonographic images of the retroperitoneum were obtained. The images were revi ewed on a PACS workstation. COMPARISON: No prior studies are available for comparison. FINDINGS: The right kidney measures 10.4 cm. The left kidney measures 13.0 cm. The renal parenchymal echotexture is normal. There is no hydronephrosis. There is no focal renal mass or calcification seen. The bladder is grossly unremarkable. The liver is incidentally noted to demonstrate increased echogenicity, possibly due to fatty infiltr ation. IMPRESSION: Bilateral kidneys are unremarkable. The liver is incidentally noted to demonstrate increased echogenicity, possibly due to fatty infiltr ation. RPTAT: EE Physician Brisa Date Time Electronically viewed and signed by Physician Brisa on 01/12/2017 18:33 /
[2017-01-12] MEDS: ATORVASTATIN 80 MG TAB PO SCH (20:34)
--- NOTE | 2017-01-12 20:39 | CONS ---
Date/Time of Note Date/Time of Note DATE: 01/12/17 TIME: 20:32 Consult Date/Type/Reason Admit Date/Time Jan 09, 2017 at 19:26 Initial Consult Date Type of Consultation: neurology Subjective no acute events. passed swallow for mech soft. Still CP on off, needs card cath Objective Vital Signs Date Time Temp Pulse Resp B/P Pulse Ox O2 Delivery O2 Flow Rate FiO2 01/12/17 18:45 92 28 149/88 98 Room Air 01/12/17 16:24 21 01/12/17 16:00 98.7 01/11/17 05:37 3.0 Intake and Output 01/11/17 01/11/17 01/12/17 15:00 23:00 07:00 Intake Total 1322 ml 1135 ml 759 ml Output Total 2700 ml 2050 ml 1500 ml Balance -1378 ml -915 ml -741 ml Results/Medications Result Diagram: 01/12/17 0537 01/12/17 0537 Results 24 hrs Laboratory Tests Test 01/11/17 20:49 01/12/17 05:37 Creatine Kinase 447 H 376 H Creatine Kinase Index 1.1 0.9 Creatinine Kinase MB (Mass) 4.82 H 3.35 H Troponin I 3.560 *H 3.360 *H White Blood Count 11.6 #H Red Blood Count 3.75 L Hemoglobin 11.6 L Hematocrit 33.3 L Mean Corpuscular Volume 88.8 Mean Corpuscular Hemoglobin 30.9 Mean Corpuscular Hemoglobin Concent 34.8 Red Cell Distribution Width 13.0 Platelet Count 203 Mean Platelet Volume 12.0 H Neutrophils % 73.7 Lymphocytes % 12.3 L Monocytes % 9.3 Eosinophils % 3.7 Basophils % 0.4 Nucleated Red Blood Cells % 0.0 Neutrophils # 8.5 H Lymphocytes # 1.4 Monocytes # 1.1 H Eosinophils # 0.4 Basophils # 0.1 Nucleated Red Blood Cells # 0.0 Sodium Level 136 Potassium Level 4.3 Chloride Level 102 Carbon Dioxide Level 28 Anion Gap 10 Blood Urea Nitrogen 24 H Creatinine 1.41 H Glucose Level 114 Calcium Level 9.3 Magnesium Level 2.1 Total Bilirubin 0.5 Direct Bilirubin 0.00 Indirect Bilirubin 0.5 Aspartate Amino Transf (AST/SGOT) 38 Alanine Aminotransferase (ALT/SGPT) 32 Alkaline Phosphatase 56 B-Type Natriuretic Peptide 618 H Total Protein 6.8 Albumin 4.3 Globulin 2.50 Albumin/Globulin Ratio 1.72 Medications Current Medications Nitroglycerin/ Dextrose (Nitroglycerin 50 Mg/D5W (Pmx)) 250 ml @ 10 mls/hr TITRATE IV Last administered on 01/12/17 20:06; Admin Dose 10 MLS/HR; Start 01/09/17 at 19:30 Ondansetron HCl (Zofran Inj) 4 mg Q6H PRN IV NAUSEA AND/OR VOMITING Last administered on 01/11/17 05:21; Admin Dose 4 MG; Start 01/09/17 at 23:00 Nitroglycerin (Nitroglycerin (Sl Tab) 0.4 Mg) 1 tab Q5M PRN SL CHEST PAIN Last administered on 01/11/17 20:16; Admin Dose 1 TAB; Start 01/09/17 at 23:00 Acetaminophen (Tylenol Tab) 650 mg Q6H PRN PO PAIN LEVEL 1-3 OR FEVER Last administered on 01/11/17 19:57; Admin Dose 650 MG; Start 01/09/17 at 23:00 Morphine Sulfate (morphine) 2 mg Q4H PRN IV MILD TO MODERATE Last administered on 01/12/17 13:07; Admin Dose 2 MG; Start 01/09/17 at 23:00 Docusate Sodium (Colace) 100 mg Q12H PRN PO CONSTIPATION; Start 01/09/17 at 23: 00 Magnesium Hydroxide (Milk Of Mag) 30 ml DAILY PRN PO CONSTIPATION Last administered on 01/11/17 05:29; Admin Dose 30 ML; Start 01/09/17 at 23:00 Bisacodyl (Dulcolax) 5 mg DAILY PRN PO CONSTIPATION; Start 01/09/17 at 23:00 Pantoprazole (Protonix Iv) 40 mg DAILY@06 IV Last administered on 01/12/17 06: 01; Admin Dose 40 MG; Start 01/10/17 at 06:00 Enoxaparin Sodium (Lovenox) 40 mg DAILY SC Last administered on 01/12/17 08:28 ; Admin Dose 40 MG; Start 01/10/17 at 09:00 Hydralazine HCl (Apresoline) 20 mg Q6 PRN IV sbp>170 Last administered on 16:54; Admin Dose 20 MG; Start 01/09/17 at 23:00 Furosemide (Lasix) 20 mg BID@06,18 IV Last administered on 01/12/17 18:41; Admin Dose 20 MG; Start 01/10/17 at 06:00 Carvedilol (Coreg) 25 mg BID PO Last administered on 01/12/17 08:21; Admin Dose 25 MG; Start 01/10/17 at 21:00 Aspirin 325 mg 325 mg DAILY PO Last administered on 01/12/17 08:27; Admin Dose 325 MG; Start 01/10/17 at 11:00 Nicardipine HCl/ Dextrose (Cardene Iv/D5W) 500 ml @ 50 mls/hr TITRATE IV Last administered on 01/11/17 04:46; Admin Dose 100 MLS/HR; Start 01/10/17 at 16:00 Captopril (Capoten) 100 mg TID PO Last administered on 01/12/17 13:14; Admin Dose 100 MG; Start 01/11/17 at 09:00 Spironolactone (Aldactone) 25 mg DAILY PO Last administered on 01/12/17 08:22; Admin Dose 25 MG; Start 01/11/17 at 09:00 Hydromorphone HCl (Dilaudid) 1 mg Q4H PRN IV SEVERE PAIN Last administered on 16:06; Admin Dose 1 MG; Start 01/12/17 at 00:30 Atorvastatin Calcium (Lipitor) 80 mg HS PO Last administered on 01/11/17 21:07 ; Admin Dose 80 MG; Start 01/11/17 at 21:00 Acetylcysteine (Nac) 600 mg BID PO Last administered on 01/12/17 08:21; Admin Dose 600 MG; Start 01/12/17 at 09:00 Lorazepam (Ativan) 1 mg Q6H PRN IV ANXIETY Last administered on 01/12/17 10:54 ; Admin Dose 1 MG; Start 01/12/17 at 10:00 Assessment/Plan Chief Complaint/Hosp Course PHYSICAL EXAMINATION: GENERAL: Not in acute distress, lying in bed. HEENT: Normocephalic, atraumatic head. NECK: No carotid bruits. No thyromegaly. LUNGS: Clear to auscultation bilaterally. CARDIAC: Normal cardiac rhythm and sounds. ABDOMEN: Soft, nontender. EXTREMITIES: No cyanosis, clubbing or edema. NEUROLOGIC: He is awake, alert and oriented x3 with fluent speech.Fluent speech. Cranial nerve examination shows intact visual daily bilaterally. Pupils about 2 mm, smaller on the right. Extraocular movements intact. End gaze horizontal, not sustained nystagmus was observed. Asymmetrical face, right ptosis, no weakness. Normal facial strength and decreased sensation on the left hemiface to temperature and pain. Tongue is in midline. Palate elevates symmetrically. Motor strength examination shows normal bulk, strength and tone throughout. Sensory examination shows diminution of perception of vibration, temperature, pinprick and touch in the left upper and lower extremities. Deep tendon reflexes 2+ upper extremities and knees. Absent ankle jerks. Downgoing toes bilaterally. Coordination preserved on finger-to- finger testing. No dysmetria or tremor. Gait was not assessed. IMPRESSION: Acute ischemic stroke, several days' duration in the right medullar area. Myocardial infarction. CAD Ischemic cardiomyopathy. History of tobacco and marijuana use. Continue current treatment per front end assistant. OK to keep normotensive, euglycemic , cont ASA, statin OK to proceed with card cath MRA suboptimal, poss focal narrowing right vertebral artery Dr. Gray will follow over the weekend Problems: AGUILA ALVAREZ MD Jan 12, 2017 20:39
[2017-01-13] VITALS (41 sets, daily range): BP systolic 129–172; BP diastolic 35–142; PULSE 63–96; RESP 14–36
[2017-01-13] MEDS: LORAZEPAM 2 MG INJ IV PRN ×3 (00:14→23:26)
[2017-01-13] MEDS: NITROGLYCERIN 50 MG/D5W (PMX) 250 ML IV SCH ×4 (00:14→21:31)
[2017-01-13] MEDS: ALBUTEROL/IPRATROPIUM (NEB) 3 ML AMP NEB SCH ×6 (01:52→21:10)
[2017-01-13] MEDS: PANTOPRAZOLE 40 MG INJ IV SCH (05:54)
[2017-01-13] MEDS: HYDROmorphONE 1 MG/ML SYG IV PRN ×2 (05:55→21:48)
[2017-01-13] MEDS: FUROSEMIDE 20 MG INJ IV SCH ×2 (05:55→18:19)
[2017-01-13 07:02] LABS: ADD SCAN DIFF NO
[2017-01-13 07:06] LABS: BASOPHILS % 0.3 % (0.0-2.0); EOSINOPHILS # 0.4 10^3/ul (0.0-0.5); EOSINOPHILS % 3.2 % (0.0-7.0); HEMATOCRIT 35.8 % (42.0-52.0); HEMOGLOBIN 11.9 g/dl (14.0-18.0); LYMPHOCYTES # 1.3 10^3/ul (0.8-2.9); LYMPHOCYTES % 11.8 % (15.0-51.0); MEAN CORPUSCULAR HEMOGLOBIN 29.7 pg (29.0-33.0); MEAN CORPUSCULAR HGB CONC 33.2 g/dl (32.0-37.0); MEAN CORPUSCULAR VOLUME 89.3 fl (82.0-101.0); MEAN PLATELET VOLUME 12.6 fl (7.4-10.4); MONOCYTE # 1.1 10^3/ul (0.3-0.9); MONOCYTES % 9.5 % (0.0-11.0); NEUTROPHIL # 8.4 10^3/ul (1.6-7.5); NEUTROPHILS % 74.3 % (39.0-77.0); PLATELET COUNT 245 10^3/UL (140-415); RED BLOOD COUNT 4.01 10^6/ul (4.70-6.10); WHITE BLOOD COUNT 11.3 10^3/ul (4.8-10.8)
[2017-01-13 07:26] LABS: INR 0.95; PROTIME 12.7 Sec (12.2-14.2)
[2017-01-13 07:37] LABS: ALBUMIN 4.5 g/dl (3.3-4.9); ALBUMIN/GLOBULIN RATIO 1.66; BILIRUBIN,INDIRECT 0.6 mg/dl (0-1.1); BILIRUBIN,TOTAL 0.6 mg/dl (0.2-1.3); CALCIUM 9.2 mg/dl (8.4-10.2); CREATININE 1.4 mg/dl (0.61-1.24); POTASSIUM 4.3 mmol/L (3.5-5.1); TOTAL PROTEIN 7.2 g/dl (6.1-8.1)
[2017-01-13 07:47] LABS: CK-MB 2.01 ng/ml (0.0-2.4); TROPONIN-I 2.09 ng/ml (0.00-0.12)
[2017-01-13] MEDS: ENOXAPARIN 40 MG/0.4 ML SYG SC SCH (09:00)
[2017-01-13] MEDS: ASPIRIN (EC) 325 MG TAB PO SCH (09:37)
[2017-01-13] MEDS: SPIRONOLACTONE 25 MG TAB PO SCH (09:37)
[2017-01-13] MEDS: ACETYLCYSTEINE 600 MG CAP PO SCH ×2 (09:37→20:48)
--- NOTE | 2017-01-13 12:38 | CONS ---
Date/Time of Note Date/Time of Note DATE: 01/13/17 TIME: 12:35 Consult Date/Type/Reason Admit Date/Time Jan 09, 2017 at 19:26 Initial Consult Date 01/13/17 Type of Consultation: neurology Reason for Consultation Right medullary CVA Subjective drowsy, delirious overnight planned for cardiac cath today Objective Vital Signs Date Time Temp Pulse Resp B/P Pulse Ox O2 Delivery O2 Flow Rate FiO2 01/13/17 12:28 83 01/13/17 09:50 20 21 01/13/17 06:15 158/83 96 01/13/17 06:00 Room Air 01/13/17 04:00 99.0 01/11/17 05:37 3.0 Intake and Output 01/12/17 01/12/17 01/13/17 15:00 23:00 07:00 Intake Total 642.5 ml 872.5 ml 337.5 ml Output Total 1200 ml 2300 ml 1000 ml Balance -557.5 ml -1427.5 ml -662.5 ml Exam GENERAL: Not in acute distress, lying in bed. HEENT: Normocephalic, atraumatic head. NECK: No carotid bruits. No thyromegaly. LUNGS: Clear to auscultation bilaterally. CARDIAC: Normal cardiac rhythm and sounds. ABDOMEN: Soft, nontender. EXTREMITIES: No cyanosis, clubbing or edema. NEUROLOGIC: He is awake, alert and oriented x3 with fluent speech.Fluent speech. Cranial nerve examination shows intact visual daily bilaterally. Pupils about 2 mm, smaller on the right 1mm reactive. Extraocular movements intact. End gaze horizontal, not sustained nystagmus was observed. Asymmetrical face, right ptosis, no weakness. Normal facial strength and decreased sensation on the left hemiface to temperature and pain. Tongue is in midline. Palate elevates symmetrically. Motor strength examination shows normal bulk, strength and tone throughout. Sensory examination shows diminution of perception of vibration, temperature, pinprick and touch in the left upper and lower extremities. Deep tendon reflexes 2+ upper extremities and knees. Absent ankle jerks. Downgoing toes bilaterally. Coordination preserved on [id number] testing. No dysmetria or tremor. Gait was not assessed. Results/Medications Result Diagram: 01/13/17 0540 01/13/17 0540 Results 24 hrs Laboratory Tests Test 01/13/17 00:30 01/13/17 05:40 Urine Random Sodium 57 White Blood Count 11.3 H Red Blood Count 4.01 L Hemoglobin 11.9 L Hematocrit 35.8 L Mean Corpuscular Volume 89.3 Mean Corpuscular Hemoglobin 29.7 Mean Corpuscular Hemoglobin Concent 33.2 Red Cell Distribution Width 13.0 Platelet Count 245 # Mean Platelet Volume 12.6 H Neutrophils % 74.3 Lymphocytes % 11.8 L Monocytes % 9.5 Eosinophils % 3.2 Basophils % 0.3 Nucleated Red Blood Cells % 0.0 Neutrophils # 8.4 H Lymphocytes # 1.3 Monocytes # 1.1 H Eosinophils # 0.4 Basophils # 0.0 Nucleated Red Blood Cells # 0.0 Prothrombin Time 12.7 Prothrombin Time Ratio 1.0 INR International Normalized Ratio 0.95 Sodium Level 138 Potassium Level 4.3 Chloride Level 99 Carbon Dioxide Level 28 Anion Gap 15 Blood Urea Nitrogen 23 H Creatinine 1.40 H Glucose Level 107 Calcium Level 9.2 Magnesium Level 2.0 Total Bilirubin 0.6 Direct Bilirubin 0.00 Indirect Bilirubin 0.6 Aspartate Amino Transf (AST/SGOT) 29 Alanine Aminotransferase (ALT/SGPT) 38 Alkaline Phosphatase 71 Creatine Kinase 303 H Creatine Kinase Index 0.7 Creatinine Kinase MB (Mass) 2.01 Troponin I 2.090 *H B-Type Natriuretic Peptide 524 H Total Protein 7.2 Albumin 4.5 Globulin 2.70 Albumin/Globulin Ratio 1.66 Digoxin Level < 0.4 L Medications Current Medications Nitroglycerin/ Dextrose (Nitroglycerin 50 Mg/D5W (Pmx)) 250 ml @ 10 mls/hr TITRATE IV Last administered on 01/13/17 12:19; Admin Dose 10 MLS/HR; Start 01/09/17 at 19:30 Ondansetron HCl (Zofran Inj) 4 mg Q6H PRN IV NAUSEA AND/OR VOMITING Last administered on 01/11/17 05:21; Admin Dose 4 MG; Start 01/09/17 at 23:00 Nitroglycerin (Nitroglycerin (Sl Tab) 0.4 Mg) 1 tab Q5M PRN SL CHEST PAIN Last administered on 01/11/17 20:16; Admin Dose 1 TAB; Start 01/09/17 at 23:00 Acetaminophen (Tylenol Tab) 650 mg Q6H PRN PO PAIN LEVEL 1-3 OR FEVER Last administered on 01/11/17 19:57; Admin Dose 650 MG; Start 01/09/17 at 23:00 Morphine Sulfate (morphine) 2 mg Q4H PRN IV MILD TO MODERATE Last administered on 01/12/17 13:07; Admin Dose 2 MG; Start 01/09/17 at 23:00 Docusate Sodium (Colace) 100 mg Q12H PRN PO CONSTIPATION; Start 01/09/17 at 23: 00 Magnesium Hydroxide (Milk Of Mag) 30 ml DAILY PRN PO CONSTIPATION Last administered on 01/11/17 05:29; Admin Dose 30 ML; Start 01/09/17 at 23:00 Bisacodyl (Dulcolax) 5 mg DAILY PRN PO CONSTIPATION; Start 01/09/17 at 23:00 Pantoprazole (Protonix Iv) 40 mg DAILY@06 IV Last administered on 01/13/17 05: 54; Admin Dose 40 MG; Start 01/10/17 at 06:00 Enoxaparin Sodium (Lovenox) 40 mg DAILY SC Last administered on 01/12/17 08:28 ; Admin Dose 40 MG; Start 01/10/17 at 09:00 Hydralazine HCl (Apresoline) 20 mg Q6 PRN IV sbp>170 Last administered on 16:54; Admin Dose 20 MG; Start 01/09/17 at 23:00 Furosemide (Lasix) 20 mg BID@06,18 IV Last administered on 01/13/17 05:55; Admin Dose 20 MG; Start 01/10/17 at 06:00 Carvedilol (Coreg) 25 mg BID PO Last administered on 01/13/17 09:38; Admin Dose 25 MG; Start 01/10/17 at 21:00 Aspirin 325 mg 325 mg DAILY PO Last administered on 01/13/17 09:37; Admin Dose 325 MG; Start 01/10/17 at 11:00 Nicardipine HCl/ Dextrose (Cardene Iv/D5W) 500 ml @ 50 mls/hr TITRATE IV Last administered on 01/11/17 04:46; Admin Dose 100 MLS/HR; Start 01/10/17 at 16:00 Captopril (Capoten) 100 mg TID PO Last administered on 01/13/17 09:37; Admin Dose 100 MG; Start 01/11/17 at 09:00 Spironolactone (Aldactone) 25 mg DAILY PO Last administered on 01/13/17 09:37; Admin Dose 25 MG; Start 01/11/17 at 09:00 Hydromorphone HCl (Dilaudid) 1 mg Q4H PRN IV SEVERE PAIN Last administered on 05:55; Admin Dose 1 MG; Start 01/12/17 at 00:30 Atorvastatin Calcium (Lipitor) 80 mg HS PO Last administered on 01/12/17 20:34 ; Admin Dose 80 MG; Start 01/11/17 at 21:00 Acetylcysteine (Nac) 600 mg BID PO Last administered on 01/13/17 09:37; Admin Dose 600 MG; Start 01/12/17 at 09:00 Lorazepam (Ativan) 1 mg Q6H PRN IV ANXIETY Last administered on 01/13/17 07:42 ; Admin Dose 1 MG; Start 01/12/17 at 10:00 Assessment/Plan Chief Complaint/Hosp Course 42 yo male active smoker, marijuana use, obesity p/w several days of right medullary CVA likely etiology intracranial atherosclerosis with right vertebral stenosis. Currently being worked up for [place], CAD planned for cardiac cath. Maintain normotensive blood pressure, euglycemia continue aspirin, statin planned for cardiac cath Problems: ASHLYN BUCK MD Jan 13, 2017 12:38
[2017-01-13] MEDS ORDERED: HEPARIN 1000 UNITS/ML 10 ML INJ ONE ×2 (13:47→15:07)
[2017-01-13] MEDS ORDERED: FENTAnyl 50 MCG/ML VIAL ONE (13:48)
[2017-01-13] MEDS ORDERED: VERAPAMIL 5 MG INJ ONE (13:48)
[2017-01-13] MEDS ORDERED: MIDAZOLAM 1 MG/ML 2 ML INJ ONE (13:48)
[2017-01-13] MEDS ORDERED: NITROGLYCERIN (IC) 100 MCG/ML INJ ONE (13:55)
[2017-01-13] MEDS ORDERED: IOHEXOL 350MG/ML 50 ML BTL ONE (15:07)
[2017-01-13] MEDS ORDERED: EPTIFIBATIDE 100 ML IV ONE (15:07)
[2017-01-13] MEDS ORDERED: IODIXANOL LOCM 100 ML BTL ONE (15:07)
[2017-01-13] MEDS ORDERED: SOD CHLORIDE 0.9% 1,000 ML IV SCH (15:19)
--- NOTE | 2017-01-13 16:04 | PN ---
Date/Time of Note Date/Time of Note DATE: 01/13/17 TIME: 16:01 Assessment/Plan VTE Prophylaxis VTE Prophylaxis Intervention: SCD's Lines/Catheters IV Catheter Type (from Nrs): Peripheral IV Urinary Cath still in place: No Assessment/Plan Chief Complaint/Hosp Course 1. Acute malignant hypertension, controlled 2. Ischemic heart disease or myocardial infarction, s/p angioplasty 3. History of coronary artery disease. 4. Pulmonary edema. 5. Infiltrate. 6. Acute kidney injury. 7. Coronary artery disease and stent placement. 8. Lactic acidosis. 9. Systemic inflammatory response syndrome 10 cva 11. Sleep apnea Problems: Assessment/Plan 1. ICU care 2. Continue current regime 3. ID MD dr Olmos 4. Respiratory evaluation for sleep apnea Subjective 24 Hr Interval Summary Constitutional: no complaints Eyes: no complaints Respiratory: no complaints Cardiovascular: chest pain Exam/Review of Systems Vital Signs Vitals Vital Signs Date Time Temp Pulse Resp B/P Pulse Ox O2 Delivery O2 Flow Rate FiO2 01/13/17 12:28 83 01/13/17 09:50 20 21 01/13/17 06:15 158/83 96 01/13/17 06:00 Room Air 01/13/17 04:00 99.0 01/11/17 05:37 3.0 Intake and Output 01/12/17 01/12/17 01/13/17 15:00 23:00 07:00 Intake Total 642.5 ml 872.5 ml 337.5 ml Output Total 1200 ml 2300 ml 1000 ml Balance -557.5 ml -1427.5 ml -662.5 ml Exam Constitutional: alert, oriented Respiratory: clear to auscultation Cardiovascular: regular rate and rhythm Results Result Diagram: 01/13/17 0540 01/13/17 0540 Results 24 hrs Laboratory Tests Test 01/13/17 00:30 01/13/17 05:40 Urine Eosinophils % 0.0 Urine Random Sodium 57 White Blood Count 11.3 H Red Blood Count 4.01 L Hemoglobin 11.9 L Hematocrit 35.8 L Mean Corpuscular Volume 89.3 Mean Corpuscular Hemoglobin 29.7 Mean Corpuscular Hemoglobin Concent 33.2 Red Cell Distribution Width 13.0 Platelet Count 245 # Mean Platelet Volume 12.6 H Neutrophils % 74.3 Lymphocytes % 11.8 L Monocytes % 9.5 Eosinophils % 3.2 Basophils % 0.3 Nucleated Red Blood Cells % 0.0 Neutrophils # 8.4 H Lymphocytes # 1.3 Monocytes # 1.1 H Eosinophils # 0.4 Basophils # 0.0 Nucleated Red Blood Cells # 0.0 Prothrombin Time 12.7 Prothrombin Time Ratio 1.0 INR International Normalized Ratio 0.95 Sodium Level 138 Potassium Level 4.3 Chloride Level 99 Carbon Dioxide Level 28 Anion Gap 15 Blood Urea Nitrogen 23 H Creatinine 1.40 H Glucose Level 107 Calcium Level 9.2 Magnesium Level 2.0 Total Bilirubin 0.6 Direct Bilirubin 0.00 Indirect Bilirubin 0.6 Aspartate Amino Transf (AST/SGOT) 29 Alanine Aminotransferase (ALT/SGPT) 38 Alkaline Phosphatase 71 Creatine Kinase 303 H Creatine Kinase Index 0.7 Creatinine Kinase MB (Mass) 2.01 Troponin I 2.090 *H B-Type Natriuretic Peptide 524 H Total Protein 7.2 Albumin 4.5 Globulin 2.70 Albumin/Globulin Ratio 1.66 Digoxin Level < 0.4 L Medications Medications Current Medications Nitroglycerin/ Dextrose (Nitroglycerin 50 Mg/D5W (Pmx)) 250 ml @ 10 mls/hr TITRATE IV Last administered on 01/13/17 12:19; Admin Dose 10 MLS/HR; Start 01/09/17 at 19:30 Ondansetron HCl (Zofran Inj) 4 mg Q6H PRN IV NAUSEA AND/OR VOMITING Last administered on 01/11/17 05:21; Admin Dose 4 MG; Start 01/09/17 at 23:00 Nitroglycerin (Nitroglycerin (Sl Tab) 0.4 Mg) 1 tab Q5M PRN SL CHEST PAIN Last administered on 01/11/17 20:16; Admin Dose 1 TAB; Start 01/09/17 at 23:00 Acetaminophen (Tylenol Tab) 650 mg Q6H PRN PO PAIN LEVEL 1-3 OR FEVER Last administered on 01/11/17 19:57; Admin Dose 650 MG; Start 01/09/17 at 23:00 Morphine Sulfate (morphine) 2 mg Q4H PRN IV MILD TO MODERATE Last administered on 01/12/17 13:07; Admin Dose 2 MG; Start 01/09/17 at 23:00 Docusate Sodium (Colace) 100 mg Q12H PRN PO CONSTIPATION; Start 01/09/17 at 23: 00 Magnesium Hydroxide (Milk Of Mag) 30 ml DAILY PRN PO CONSTIPATION Last administered on 01/11/17 05:29; Admin Dose 30 ML; Start 01/09/17 at 23:00 Bisacodyl (Dulcolax) 5 mg DAILY PRN PO CONSTIPATION; Start 01/09/17 at 23:00 Pantoprazole (Protonix Iv) 40 mg DAILY@06 IV Last administered on 01/13/17 05: 54; Admin Dose 40 MG; Start 01/10/17 at 06:00 Enoxaparin Sodium (Lovenox) 40 mg DAILY SC Last administered on 01/12/17 08:28 ; Admin Dose 40 MG; Start 01/10/17 at 09:00 Hydralazine HCl (Apresoline) 20 mg Q6 PRN IV sbp>170 Last administered on 16:54; Admin Dose 20 MG; Start 01/09/17 at 23:00 Furosemide (Lasix) 20 mg BID@06,18 IV Last administered on 01/13/17 05:55; Admin Dose 20 MG; Start 01/10/17 at 06:00 Aspirin 325 mg 325 mg DAILY PO Last administered on 01/13/17 09:37; Admin Dose 325 MG; Start 01/10/17 at 11:00 Nicardipine HCl/ Dextrose (Cardene Iv/D5W) 500 ml @ 50 mls/hr TITRATE IV Last administered on 01/11/17 04:46; Admin Dose 100 MLS/HR; Start 01/10/17 at 16:00 Captopril (Capoten) 100 mg TID PO Last administered on 01/13/17 13:17; Admin Dose 100 MG; Start 01/11/17 at 09:00 Spironolactone (Aldactone) 25 mg DAILY PO Last administered on 01/13/17 09:37; Admin Dose 25 MG; Start 01/11/17 at 09:00 Hydromorphone HCl (Dilaudid) 1 mg Q4H PRN IV SEVERE PAIN Last administered on 05:55; Admin Dose 1 MG; Start 01/12/17 at 00:30 Atorvastatin Calcium (Lipitor) 80 mg HS PO Last administered on 01/12/17 20:34 ; Admin Dose 80 MG; Start 01/11/17 at 21:00 Acetylcysteine (Nac) 600 mg BID PO Last administered on 01/13/17 09:37; Admin Dose 600 MG; Start 01/12/17 at 09:00 Lorazepam (Ativan) 1 mg Q6H PRN IV ANXIETY Last administered on 01/13/17 07:42 ; Admin Dose 1 MG; Start 01/12/17 at 10:00 Clopidogrel Bisulfate 75 mg 75 mg DAILY PO ; Start 01/13/17 at 15:30 Sodium Chloride (NS) 1,000 ml @ 75 mls/hr [id number] IV ; Start 01/13/17 at 15:19; Stop 01/14/17 at 04:38 Carvedilol (Coreg) 25 mg TID PO ; Start 01/13/17 at 21:00 ZACK HERRERA Jan 13, 2017 16:04
--- NOTE | 2017-01-13 16:07 | PN ---
DATE: 01/13/2017 CARDIOLOGY FOLLOWUP NOTE Discussed with the staff. Rhythm strip was reviewed. The patient remains in sinus rhythm with freq uent PVCs. No chest pain or pressure now. No palpitation. Still has some right-sided chest pain t chuck. Still anxious and hypertensive, ____ nitroglycerin to be in the ICU. Neuro evaluation is ap preciated as well, and was reviewed. MEDICATIONS: Reviewed. PHYSICAL EXAMINATION: VITAL SIGNS: Temperature 99, heart rate of 83, blood pressure 158/83, respiratory rate of 20. HEENT: Normocephalic, atraumatic. Obese gentleman. Pupils are equal. CARDIOVASCULAR: Regular rate and rhythm. PULMONARY: Anteriorly mild rhonchi. No wheezes. GASTROINTESTINAL: Soft, nontender. EXTREMITIES: Trivial edema. NEUROLOGIC: Awake and alert. PSYCHIATRIC: Anxious, but overall stable. LABORATORY: WBC of 11.3, hemoglobin 11.9, platelets 245. Sodium 138, potassium 4.3, BUN of 23, cre atinine 1.4, glucose 107. Troponin down to 2.09, BNP of 524. Brain MRI with MRA done shows focal n arrowing of right intradural vertebral artery. Brain MRI shows limited by motion artifact and possi ble subacute infarct in the posterior right medulla. ASSESSMENT AND PLAN: 1. Svg-CM-kzpnrtjja myocardial infarction. 2. Congestive heart failure class IV, currently improved. 3. Severe cardiomyopathy. 4. Coronary artery disease, history of percutaneous coronary intervention of the left anterior juanpablo cending. 5. Hypertensive urgency. 6. Morbid obesity. 7. Anxiety exacerbated by marijuana use. 8. Acute cerebrovascular accident. 9. Dyslipidemia. 9. Elevated liver function tests. RECOMMENDATIONS: Patient underwent successful coronary angiogram. Status post percutaneous coronar y intervention of his PDA. We will continue with the aspirin and Plavix was added. I would increas e the carvedilol to t.i.d. and probably eventually if needed will increase dose to 50 mg of Coreg b. i.d. KRIS inhibitor will be continued. Mucomyst was added as well. ____ will be continued. Contin ue with the ICU care. Currently, off of nifedipine drip. Aldactone has been added as well. More than 39 minutes of critical care time was spent managing this patient, excluding any procedures . Dictated By: SRI RIVERS/CARMINA Conf#: [id number] DID#: [id number] CC: WHIT BINGHAM MD;*[facility]*
[2017-01-13 16:35] LABS: PROTEIN/CREAT RATIO 0.1 RATIO
[2017-01-13] MEDS: CLOPIDOGREL 75 MG TAB PO SCH (17:05)
--- NOTE | 2017-01-13 17:58 | SP ---
DATE OF PROCEDURE: 01/13/2017 CARDIOLOGY PROCEDURE NOTE Procedure performed: 1. Left heart catheterization and selective Right and left coronary angiography. 2. angioplasty of the ostium of the PDA using a 3,0 x 12 noncompliant balloon. 3. Moderate sedation of more than 90 minutes VOLUNTEER ASSISTANT: Sri Ventura MD CLINICAL INDICATIONS: This is a 42-year-old gentleman who presented with NSTEMI. His other risk factors include severe hypertension, coronary artery disease, previous PCI, congestive heart failure class IV, severe cardiomyopathy. FINDINGS: 1. Left main coronary is large and normal. 2. Left anterior descending is a large vessel. The mid stent is patent. The rest of the artery also appeared to be patent with less than 20% stenosis. 3. Left circumflex is a large nondominant vessel which appeared to be normal. 4. Right coronary is a large, dominant vessel. It is very tortuous, aneurysmal disease. Distally has about 50% stenosis. It bifurcates to the PDA and posterolateral artery. Posterolateral artery is a very large vessel with about 20% stenosis. PDA has a 90% ostial stenosis and other 70% proximal stenosis. After successful angioplasty of this lesion, there was less than 20% residual stenosis left. DESCRIPTION OF PROCEDURE: Written informed consent was obtained. The risks were discussed with the patient. ____. Using modified Seldinger technique, the left radial artery area was prepped in regular sterile fashion. It was anesthetized with 1% lidocaine. Using modified Seldinger technique, a 6 Ivorian sheath was placed in the left radial artery using an ultrasound-guided ____. A JR4 catheter was advanced and engaged in the left main, hemodynamics recorded. Pullback aortic pressure was measured. It was advanced and engaged in the right coronary artery and angiogram was obtained. The JL 3.5 was advanced and engaged in the left main coronary artery, could not engage, but changed to a JL4 which was advanced and engaged in the left main coronary artery. Angiogram was obtained. ____ to perform angioplasty of the right posterior descending artery. JR4 catheter was used to cross the lesion. BMW wire used because of tortuosity could not cross, ____a PT wire used across into the posterior descending artery. A 3.0 ____ balloon ____ was placed across the lesion, multiple times inflated. Final angiogram was obtained. ____, no evidence of dissection, less than 20 residual stenosis. Catheter and Glidewire were removed. TR band was applied. Patient had no complication. IMMEDIATE COMPLICATIONS: None. TOTAL CONTRAST USED: 110 mL of Visipaque. CONCLUSION: Successful angioplasty of the posterior descending artery. RECOMMENDATIONS: Aggressive medical therapy. Dictated By: SRI RIVERS/CARMINA Conf#: [id number] DID#: [id number] HEATH
[2017-01-13] MEDS ORDERED: ONDANSETRON 4 MG INJ IV PRN (19:00)
[2017-01-13] MEDS: morphine 2 MG INJ IV PRN (20:03)
[2017-01-13] MEDS: ATORVASTATIN 80 MG TAB PO SCH (20:47)
[2017-01-14] VITALS (60 sets, daily range): BP systolic 106–193; BP diastolic 62–137; PULSE 66–96; RESP 13–32
[2017-01-14] MEDS: ALBUTEROL/IPRATROPIUM (NEB) 3 ML AMP NEB SCH ×6 (01:31→20:02)
[2017-01-14] MEDS: morphine 2 MG INJ IV PRN ×5 (02:45→18:51)
[2017-01-14] MEDS: FUROSEMIDE 20 MG INJ IV SCH ×2 (05:28→17:15)
[2017-01-14] MEDS: PANTOPRAZOLE 40 MG INJ IV SCH (05:28)
[2017-01-14] MEDS: NITROGLYCERIN 50 MG/D5W (PMX) 250 ML IV SCH ×2 (06:08→20:15)
[2017-01-14 06:31] LABS: ADD SCAN DIFF NO
[2017-01-14 06:35] LABS: BASOPHIL # 0.1 10^3/ul (0.0-0.1); BASOPHILS % 0.5 % (0.0-2.0); EOSINOPHILS # 0.4 10^3/ul (0.0-0.5); EOSINOPHILS % 3.3 % (0.0-7.0); HEMATOCRIT 33.8 % (42.0-52.0); HEMOGLOBIN 11.6 g/dl (14.0-18.0); LYMPHOCYTES # 1.7 10^3/ul (0.8-2.9); LYMPHOCYTES % 15.6 % (15.0-51.0); MEAN CORPUSCULAR HEMOGLOBIN 30.7 pg (29.0-33.0); MEAN CORPUSCULAR HGB CONC 34.3 g/dl (32.0-37.0); MEAN CORPUSCULAR VOLUME 89.4 fl (82.0-101.0); MEAN PLATELET VOLUME 12.2 fl (7.4-10.4); MONOCYTE # 1.2 10^3/ul (0.3-0.9); MONOCYTES % 11.3 % (0.0-11.0); NEUTROPHIL # 7.4 10^3/ul (1.6-7.5); NEUTROPHILS % 68.5 % (39.0-77.0); PLATELET COUNT 252 10^3/UL (140-415); RED BLOOD COUNT 3.78 10^6/ul (4.70-6.10); RED CELL DISTRIBUTION WIDTH 12.8 % (11.5-14.5); WHITE BLOOD COUNT 10.8 10^3/ul (4.8-10.8)
[2017-01-14 07:00] LABS: ALBUMIN 4.1 g/dl (3.3-4.9); ALBUMIN/GLOBULIN RATIO 1.7; BILIRUBIN,INDIRECT 0.5 mg/dl (0-1.1); BILIRUBIN,TOTAL 0.5 mg/dl (0.2-1.3); CALCIUM 9.9 mg/dl (8.4-10.2); CREATININE 1.33 mg/dl (0.61-1.24); MAGNESIUM 2.1 mg/dl (1.7-2.5); POTASSIUM 4.9 mmol/L (3.5-5.1); TOTAL PROTEIN 6.5 g/dl (6.1-8.1)
[2017-01-14 07:15] LABS: CK-MB 2.07 ng/ml (0.0-2.4); TROPONIN-I 1.48 ng/ml (0.00-0.12)
--- NOTE | 2017-01-14 07:57 | CONS ---
DATE OF ADMISSION: 01/09/2017 DATE OF CONSULTATION: TYPE OF CONSULTATION: Infectious disease. REQUESTING PHYSICIAN: Casey Ferrer MD HISTORY OF PRESENT ILLNESS: The patient is a 42-year-old white male who presented to [facility] on 01/09/2017 with a chief complaint of sharp chest pain, dizziness, headache and danny sea x1 day. This was preceded by a cough and subjective fever for a few days prior to that. He not ed chills, sweating and nasal drip. Upon arrival in the emergency room, he was noted to have a bloo d pressure of 268/162, O2 saturation 98%, respirations 19, pulse 113, temperature 98.6. His white c ount was 11,200, with a hemoglobin of 14.9 grams, with 75 polys and 5 monocytes. BUN was 18, creati nine 1.33. Urinalysis had a specific gravity of 1.025, a pH of 5.5. The remaining tests were negat darnell except for 0 to 2 WBCs. The patient had a chest x-ray which revealed moderate cardiomegaly and mild pulmonary vascular congestion. The patient was thought to have criteria for systemic inflammat ory response and was begun treatment with vancomycin and Zosyn. These were subsequently discontinue d when the patient had subsequent workup. The patient had developed a troponin elevation, starting at 3.56 to 3.36 to 2.09, echocardiogram which revealed concentric right ventricular hypertrophy, and has an enlarged left ventricular cavity. He had a CT scan because of numbness on the right side of the body and an intermittently droopy right eye and double vision intermittently. The patient had a CT scan of the brain which revealed calcified vertebral arteries, otherwise negative. MRI of the head and neck revealed tortuous carotid arteries and a limited signal, left distal posterior cerebra l artery. He had focal narrowing of the distal posterior cerebral artery. Renal ultrasound was neg ative. The patient had cultures which were negative for MRSA. Urine is negative at 48 hours. Bloo d cultures have been negative at 4 days. He was seen by Dr. Davis in neurologic consultation , who diagnosed an acute ischemic infarction of the right medulla, with left hemianesthesia. The luis navarro was seen in cardiology consultation and underwent angioplasty when coronary angiography reveal ed a 90% ostial posterior descending artery stenosis and a 70% proximal stenosis of the same artery. The angioplasty left 20% stenosis. The patient had some trouble swallowing and required . Hi s white count pablo to a high of 16,000, and then 16,400 on -01/11/2017, and then it fell to 11,300 t yonis. PAST MEDICAL HISTORY: 1. Coronary artery disease with stenting. 2. Diabetes mellitus. 3. Hypertension. 4. History of tobacco use. ALLERGIES: He has no known allergies. PAST SURGICAL HISTORY: None. CURRENT MEDICATIONS: 1. Carvedilol. 2. Plavix. 3. Atorvastatin. 4. Enteric-coated aspirin. REVIEW OF SYSTEMS: He complains of difficulty swallowing, feeling dehydrated, and has nasal congest ion and some posterior nasal drip. PHYSICAL EXAMINATION: GENERAL: Reveals a mesomorphic, overweight, hirsute male, who is alert, oriented and cooperative. He is in mild acute distress. VITAL SIGNS: His blood pressure 140/78, respirations are 18. He is afebrile. HEENT: The pupils are constricted and react to light. Mouth has moist mucous membranes, with thick ened secretions. NECK: There is no jugular venous distention. CHEST: Broad and is clear to auscultation. HEART: Regular. There is no gallop or murmur. ABDOMEN: Obese, soft. No palpable organs or masses. Bowel sounds are present. EXTREMITIES: Examination reveals redness in a previous IV site in the left antecubital fossa, with elastic bandages at both wrists and on the right arm IV site. The patient is alert, oriented and cooperative. He complains of constant tingling on his left arm, the left side of his body and the left lower extremity. He can move all these areas without any dif ficulty. INITIAL IMPRESSION: 1. Leukocytosis. 2. Acute cerebrovascular accident of the right medulla. 3. Acute myocardial infarction. 4. Coronary artery disease with a history of stenting. 5. Malignant hypertension with crisis and encephalopathy. 6. Congestive heart failure and pulmonary edema. 7. Diabetes mellitus. 8. History of tobacco use. 9. Cellulitis, left antecubital fossa. RECOMMENDATIONS: The patient does not have any infectious condition other than cellulitis in his le ft antecubital fossa, which is being treated with hot compresses, and some rhinorrhea for which I bautista ve prescribed 3 days of Fluticasone nasal spray. Thank you for referring this interesting patient to Dr. Olmos. Dictated By: Supa BURKETT/CARMINA Conf#: [id number] DID#: [id number]
[2017-01-14] MEDS: ACETYLCYSTEINE 600 MG CAP PO SCH ×2 (08:57→21:03)
[2017-01-14] MEDS: ASPIRIN (EC) 325 MG TAB PO SCH (08:57)
[2017-01-14] MEDS: FLUTICASONE 0.05% 16 GM NAS SPRAY NASAL SCH ×2 (08:57→21:07)
[2017-01-14] MEDS: CLOPIDOGREL 75 MG TAB PO SCH (08:57)
[2017-01-14] MEDS: SPIRONOLACTONE 25 MG TAB PO SCH (08:57)
[2017-01-14] MEDS: ENOXAPARIN 40 MG/0.4 ML SYG SC SCH (08:59)
[2017-01-14] MEDS: LORAZEPAM 2 MG INJ IV PRN (10:00)
--- NOTE | 2017-01-14 11:30 | PN ---
DATE: 01/14/2017 CARDIOLOGY FOLLOWUP SUBJECTIVE: Discussed with the staff. Rhythm strip was reviewed. The patient denies any chest mj n or pressure to me. Denies palpitation. Complaining of lower back pain. Still and hyperten sive, required to be a nitroglycerin drip. MEDICATIONS: Reviewed. PHYSICAL EXAMINATION: VITAL SIGNS: Temperature 98.1, heart rate of 88, blood pressure 160/120, respiratory rate of 25, sa turating 95%. HEENT: Normocephalic, atraumatic. Obese gentleman. Pupils are equal. Appears to be anxious. CARDIOVASCULAR: Regular rate and rhythm. Systolic murmur. PULMONARY: With no wheezes anteriorly. No rhonchi. GASTROINTESTINAL: Obese, soft, nontender. EXTREMITIES: With trivial lower extremity edema. VASCULAR: Left hand with intact pulses and no sensation loss or neurological deficits. LABORATORY DATA: Sodium 138, potassium 4.9, BUN of 25, creatinine 1.33, glucose 116. Troponin 1.48 . CK of 298. ProBNP of 637. ASSESSMENT AND PLAN: 1. Opt-AJ-hofuzajow myocardial infarction. 2. Status post percutaneous transluminal coronary angioplasty of the right coronary artery and PDA. 3. Hypertensive urgency. 4. Cerebrovascular accident. 5. History of coronary artery disease. 6. Dyslipidemia. 7. Morbid obesity. RECOMMENDATIONS: I will start the patient on amlodipine at bedtime. He stated he wants to reduce t he number of medications he takes at home to be compliant with the medications. I will switch him f rom captopril to lisinopril 40 mg daily. Coreg will be increased to 50 mg p.o. b.i.d. Try to titrate him off the nitroglycerin. Aspirin and Plavix will be continued. Statin will be continued . Continue with the ICU care for now. More than 36 minutes of critical care time was spent in management of this patient excluding any pro cedures. Dictated By: SRI DE GUZMAN MD AV/CARMINA Conf#: [id number] DID#: [id number] CC: WHIT BINGHAM MD;*[facility]*
[2017-01-14] MEDS: LISINOPRIL 20 MG TAB PO SCH (12:00)
[2017-01-14] MEDS: ALPRAZOLAM 0.25 MG TAB NGT SCH ×2 (12:58→21:02)
--- NOTE | 2017-01-14 13:31 | CONS ---
Date/Time of Note Date/Time of Note DATE: 01/14/17 TIME: 13:26 Consult Date/Type/Reason Admit Date/Time Jan 09, 2017 at 19:26 Initial Consult Date 01/13/17 Type of Consultation: neurology Subjective post cardiac catheterization post angioplasty on dual antiplatelet therapy intermittently agitated Objective Vital Signs Date Time Temp Pulse Resp B/P Pulse Ox O2 Delivery O2 Flow Rate FiO2 01/14/17 12:00 92 01/14/17 09:30 25 169/123 97 Room Air 01/14/17 08:29 21 01/14/17 08:00 98.1 01/11/17 05:37 3.0 Intake and Output 01/13/17 01/13/17 01/14/17 15:00 23:00 07:00 Intake Total 270 ml 135 ml Output Total 700 ml 1200 ml 900 ml Balance -430 ml -1065 ml -900 ml Exam GENERAL: Not in acute distress, lying in bed. HEENT: Normocephalic, atraumatic head. NECK: No carotid bruits. No thyromegaly. LUNGS: Clear to auscultation bilaterally. CARDIAC: Normal cardiac rhythm and sounds. ABDOMEN: Soft, nontender. EXTREMITIES: No cyanosis, clubbing or edema. NEUROLOGIC: He is awake, alert and oriented x3 with fluent speech.Fluent speech. Cranial nerve examination shows intact visual daily bilaterally. Pupils about 2 mm, smaller on the right 1mm reactive. Extraocular movements intact. End gaze horizontal, not sustained nystagmus was observed. Asymmetrical face, right ptosis, no weakness. Normal facial strength and decreased sensation on the left hemiface to temperature and pain. Tongue is in midline. Palate elevates symmetrically. Motor strength examination shows normal bulk, strength and tone throughout. Sensory examination shows diminution of perception of vibration, temperature, pinprick and touch in the left upper and lower extremities. Deep tendon reflexes 2+ upper extremities and knees. Absent ankle jerks. Downgoing toes bilaterally. Coordination preserved on [id number] testing. No dysmetria or tremor. Gait was not assessed. Results/Medications Result Diagram: 01/14/17 0518 01/14/17 0518 Results 24 hrs Laboratory Tests Test 01/14/17 05:18 White Blood Count 10.8 Red Blood Count 3.78 L Hemoglobin 11.6 L Hematocrit 33.8 L Mean Corpuscular Volume 89.4 Mean Corpuscular Hemoglobin 30.7 Mean Corpuscular Hemoglobin Concent 34.3 Red Cell Distribution Width 12.8 Platelet Count 252 Mean Platelet Volume 12.2 H Neutrophils % 68.5 Lymphocytes % 15.6 Monocytes % 11.3 H Eosinophils % 3.3 Basophils % 0.5 Nucleated Red Blood Cells % 0.0 Neutrophils # 7.4 Lymphocytes # 1.7 Monocytes # 1.2 H Eosinophils # 0.4 Basophils # 0.1 Nucleated Red Blood Cells # 0.0 Sodium Level 138 Potassium Level 4.9 Chloride Level 101 Carbon Dioxide Level 26 Anion Gap 16 Blood Urea Nitrogen 25 H Creatinine 1.33 H Glucose Level 116 Calcium Level 9.9 Magnesium Level 2.1 Total Bilirubin 0.5 Direct Bilirubin 0.00 Indirect Bilirubin 0.5 Aspartate Amino Transf (AST/SGOT) 29 Alanine Aminotransferase (ALT/SGPT) 47 Alkaline Phosphatase 69 Creatine Kinase 298 H Creatine Kinase Index 0.7 Creatinine Kinase MB (Mass) 2.07 Troponin I 1.480 *H B-Type Natriuretic Peptide 637 H Total Protein 6.5 Albumin 4.1 Globulin 2.40 Albumin/Globulin Ratio 1.70 Medications Current Medications Nitroglycerin/ Dextrose (Nitroglycerin 50 Mg/D5W (Pmx)) 250 ml @ 10 mls/hr TITRATE IV Last administered on 01/14/17 06:08; Admin Dose 10 MLS/HR; Start at 19:30 Ondansetron HCl (Zofran Inj) 4 mg Q6H PRN IV NAUSEA AND/OR VOMITING Last administered on 01/11/17 05:21; Admin Dose 4 MG; Start 01/09/17 at 23:00 Nitroglycerin (Nitroglycerin (Sl Tab) 0.4 Mg) 1 tab Q5M PRN SL CHEST PAIN Last administered on 01/11/17 20:16; Admin Dose 1 TAB; Start 01/09/17 at 23:00 Acetaminophen (Tylenol Tab) 650 mg Q6H PRN PO PAIN LEVEL 1-3 OR FEVER Last administered on 01/11/17 19:57; Admin Dose 650 MG; Start 01/09/17 at 23:00 Morphine Sulfate (morphine) 2 mg Q4H PRN IV MILD TO MODERATE Last administered on 01/14/17 11:00; Admin Dose 2 MG; Start 01/09/17 at 23:00 Docusate Sodium (Colace) 100 mg Q12H PRN PO CONSTIPATION; Start 01/09/17 at 23: 00 Magnesium Hydroxide (Milk Of Mag) 30 ml DAILY PRN PO CONSTIPATION Last administered on 01/11/17 05:29; Admin Dose 30 ML; Start 01/09/17 at 23:00 Bisacodyl (Dulcolax) 5 mg DAILY PRN PO CONSTIPATION; Start 01/09/17 at 23:00 Pantoprazole (Protonix Iv) 40 mg DAILY@06 IV Last administered on 01/14/17 05: 28; Admin Dose 40 MG; Start 01/10/17 at 06:00 Enoxaparin Sodium (Lovenox) 40 mg DAILY SC Last administered on 01/14/17 08:59 ; Admin Dose 40 MG; Start 01/10/17 at 09:00 Hydralazine HCl (Apresoline) 20 mg Q6 PRN IV sbp>170 Last administered on 16:54; Admin Dose 20 MG; Start 01/09/17 at 23:00 Furosemide (Lasix) 20 mg BID@06,18 IV Last administered on 01/14/17 05:28; Admin Dose 20 MG; Start 01/10/17 at 06:00 Aspirin 325 mg 325 mg DAILY PO Last administered on 01/14/17 08:57; Admin Dose 325 MG; Start 01/10/17 at 11:00 Nicardipine HCl/ Dextrose (Cardene Iv/D5W) 500 ml @ 50 mls/hr TITRATE IV Last administered on 01/11/17 04:46; Admin Dose 100 MLS/HR; Start 01/10/17 at 16:00 Spironolactone (Aldactone) 25 mg DAILY PO Last administered on 01/14/17 08:57 ; Admin Dose 25 MG; Start 01/11/17 at 09:00 Hydromorphone HCl (Dilaudid) 1 mg Q4H PRN IV SEVERE PAIN Last administered on 21:48; Admin Dose 1 MG; Start 01/12/17 at 00:30 Atorvastatin Calcium (Lipitor) 80 mg HS PO Last administered on 01/13/17 20:47 ; Admin Dose 80 MG; Start 01/11/17 at 21:00 Acetylcysteine (Nac) 600 mg BID PO Last administered on 01/14/17 08:57; Admin Dose 600 MG; Start 01/12/17 at 09:00 Lorazepam (Ativan) 1 mg Q6H PRN IV ANXIETY Last administered on 01/13/17 23:26 ; Admin Dose 1 MG; Start 01/12/17 at 10:00 Clopidogrel Bisulfate (plaVIX) 75 mg DAILY PO Last administered on 01/14/17 08 :57; Admin Dose 75 MG; Start 01/13/17 at 15:30 Fluticasone Propionate (Flonase 0.05% Nasal) 1 spray BID NASAL Last administered on 01/14/17 08:57; Admin Dose 1 SPRAY; Start 01/14/17 at 09:00; Stop 01/17/17 at 12:00 Carvedilol (Coreg) 50 mg BID PO ; Start 01/14/17 at 21:00 Lisinopril (Zestril) 40 mg DAILY PO Last administered on 01/14/17 12:00; Admin Dose 40 MG; Start 01/14/17 at 11:00 Amlodipine Besylate (Norvasc) 10 mg QHS PO ; Start 01/14/17 at 21:00 Alprazolam (Xanax) 0.25 mg BID NGT Last administered on 01/14/17 12:58; Admin Dose 0.25 MG; Start 01/14/17 at 12:00 Nicotine (Nicoderm 14 Mg/ 24hr) 1 patch DAILY TRANSDERM ; Start 01/14/17 at 13: 00 Assessment/Plan Chief Complaint/Hosp Course 42 yo male active smoker, marijuana use, obesity p/w several days 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 managed on dual antiplatelet therapy. Recommendations: maintain normotensive blood pressure, euglycemia continue aspirin, plavix, and statin continue anxiolytics blood pressure remains elevated, he remains in the ICU for closer monitoring continue therapies, advised importance of compliance with all meds weight loss, smoking cessation reinforced PT/OT evaluation for rehab will follow up as needed Problems: ASHLYN BUCK MD Jan 14, 2017 13:30
[2017-01-14] MEDS: NICOTINE (14 MG/24 HR) PATCH TRANSDERM SCH (13:57)
--- NOTE | 2017-01-14 16:46 | RADRPT ---
Vent Rate: 86 bpm RR Interval: 0 msec WV Interval: 170 msec QRS Duration: 122 msec QT Interval: 396 msec QTC Interval: 473 msec P-R-T Yeso: 51 - -9 - 158 degrees Normal sinus rhythm Left ventricular hypertrophy with QRS widening and repolarization abnormality Poor R Wave progression Biatrial enlargement Abnormal ECG No previous tracing available for comparison Electronically Signed By: Andriy Mendoza [id number]
[2017-01-14] MEDS: MINOXIDIL 2.5 MG TAB PO SCH (17:14)
--- NOTE | 2017-01-14 18:39 | CONS ---
Date/Time of Note Date/Time of Note DATE: 01/14/17 TIME: 18:34 Assessment/Plan Assessment/Plan Chief Complaint/Hosp Course Subjective: Alert, feels good, no fevers, nad PHYSICAL EXAMINATION: GENERAL: Well developed, overweight male, who is alert, oriented and cooperative. No acute distress HEENT: Normocephalic, QUYEN NECK: There is no jugular venous distention. CHEST: Clear to auscultation. HEART: Regular. There is no gallop or murmur. ABDOMEN: Obese, soft. No palpable organs or masses. Bowel sounds are present. EXTREMITIES: Examination reveals redness in a previous IV site in the left antecubital fossa, with elastic bandages at both wrists and on the right arm IV site. Assessment 1. Leukocytosis==> resolving. 2. ?acute cerebrovascular accident of the right medulla==> neurology follows. 3. Acute myocardial infarction. 4. Coronary artery disease with a history of stenting. 5. Malignant hypertension with crisis and encephalopathy. 6. Congestive heart failure and pulmonary edema. 7. Diabetes mellitus. 8. History of tobacco use. 9. Cellulitis, left antecubital fossa. RECOMMENDATIONS: Stable, wbc decreasing, no fevers, continue observing off abx DW pt Problems: Consultation Date/Type/Reason Admit Date/Time Jan 09, 2017 at 19:26 Initial Consult Date Type of Consultation: ID Exam/Review of Systems Vital Signs Vitals Vital Signs Date Time Temp Pulse Resp B/P Pulse Ox O2 Delivery O2 Flow Rate FiO2 01/14/17 17:01 78 16 94 21 01/14/17 16:30 123/77 Room Air 01/14/17 16:00 98.0 01/11/17 05:37 3.0 Intake and Output 01/13/17 01/13/17 01/14/17 15:00 23:00 07:00 Intake Total 270 ml 135 ml Output Total 700 ml 1200 ml 900 ml Balance -430 ml -1065 ml -900 ml Results Result Diagram: 01/14/1718 01/14/1718 Results 24 hrs Laboratory Tests Test 01/14/17 05:18 White Blood Count 10.8 Red Blood Count 3.78 L Hemoglobin 11.6 L Hematocrit 33.8 L Mean Corpuscular Volume 89.4 Mean Corpuscular Hemoglobin 30.7 Mean Corpuscular Hemoglobin Concent 34.3 Red Cell Distribution Width 12.8 Platelet Count 252 Mean Platelet Volume 12.2 H Neutrophils % 68.5 Lymphocytes % 15.6 Monocytes % 11.3 H Eosinophils % 3.3 Basophils % 0.5 Nucleated Red Blood Cells % 0.0 Neutrophils # 7.4 Lymphocytes # 1.7 Monocytes # 1.2 H Eosinophils # 0.4 Basophils # 0.1 Nucleated Red Blood Cells # 0.0 Sodium Level 138 Potassium Level 4.9 Chloride Level 101 Carbon Dioxide Level 26 Anion Gap 16 Blood Urea Nitrogen 25 H Creatinine 1.33 H Glucose Level 116 Calcium Level 9.9 Magnesium Level 2.1 Total Bilirubin 0.5 Direct Bilirubin 0.00 Indirect Bilirubin 0.5 Aspartate Amino Transf (AST/SGOT) 29 Alanine Aminotransferase (ALT/SGPT) 47 Alkaline Phosphatase 69 Creatine Kinase 298 H Creatine Kinase Index 0.7 Creatinine Kinase MB (Mass) 2.07 Troponin I 1.480 *H B-Type Natriuretic Peptide 637 H Total Protein 6.5 Albumin 4.1 Globulin 2.40 Albumin/Globulin Ratio 1.70 Medications Medications Current Medications Nitroglycerin/ Dextrose (Nitroglycerin 50 Mg/D5W (Pmx)) 250 ml @ 10 mls/hr TITRATE IV Last administered on 01/14/17 06:08; Admin Dose 10 MLS/HR; Start at 19:30 Ondansetron HCl (Zofran Inj) 4 mg Q6H PRN IV NAUSEA AND/OR VOMITING Last administered on 01/11/17 05:21; Admin Dose 4 MG; Start 01/09/17 at 23:00 Nitroglycerin (Nitroglycerin (Sl Tab) 0.4 Mg) 1 tab Q5M PRN SL CHEST PAIN Last administered on 01/11/17 20:16; Admin Dose 1 TAB; Start 01/09/17 at 23:00 Acetaminophen (Tylenol Tab) 650 mg Q6H PRN PO PAIN LEVEL 1-3 OR FEVER Last administered on 01/11/17 19:57; Admin Dose 650 MG; Start 01/09/17 at 23:00 Morphine Sulfate (morphine) 2 mg Q4H PRN IV MILD TO MODERATE Last administered on 01/14/17 15:30; Admin Dose 2 MG; Start 01/09/17 at 23:00 Docusate Sodium (Colace) 100 mg Q12H PRN PO CONSTIPATION; Start 01/09/17 at 23: 00 Magnesium Hydroxide (Milk Of Mag) 30 ml DAILY PRN PO CONSTIPATION Last administered on 01/11/17 05:29; Admin Dose 30 ML; Start 01/09/17 at 23:00 Bisacodyl (Dulcolax) 5 mg DAILY PRN PO CONSTIPATION; Start 01/09/17 at 23:00 Pantoprazole (Protonix Iv) 40 mg DAILY@06 IV Last administered on 01/14/17 05: 28; Admin Dose 40 MG; Start 01/10/17 at 06:00 Enoxaparin Sodium (Lovenox) 40 mg DAILY SC Last administered on 01/14/17 08:59 ; Admin Dose 40 MG; Start 01/10/17 at 09:00 Hydralazine HCl (Apresoline) 20 mg Q6 PRN IV sbp>170 Last administered on 16:54; Admin Dose 20 MG; Start 01/09/17 at 23:00 Furosemide (Lasix) 20 mg BID@06,18 IV Last administered on 01/14/17 17:15; Admin Dose 20 MG; Start 01/10/17 at 06:00 Aspirin 325 mg 325 mg DAILY PO Last administered on 01/14/17 08:57; Admin Dose 325 MG; Start 01/10/17 at 11:00 Nicardipine HCl/ Dextrose (Cardene Iv/D5W) 500 ml @ 50 mls/hr TITRATE IV Last administered on 01/11/17 04:46; Admin Dose 100 MLS/HR; Start 01/10/17 at 16:00 Spironolactone (Aldactone) 25 mg DAILY PO Last administered on 01/14/17 08:57 ; Admin Dose 25 MG; Start 01/11/17 at 09:00 Hydromorphone HCl (Dilaudid) 1 mg Q4H PRN IV SEVERE PAIN Last administered on 21:48; Admin Dose 1 MG; Start 01/12/17 at 00:30 Atorvastatin Calcium (Lipitor) 80 mg HS PO Last administered on 01/13/17 20:47 ; Admin Dose 80 MG; Start 01/11/17 at 21:00 Acetylcysteine (Nac) 600 mg BID PO Last administered on 01/14/17 08:57; Admin Dose 600 MG; Start 01/12/17 at 09:00 Lorazepam (Ativan) 1 mg Q6H PRN IV ANXIETY Last administered on 01/13/17 23:26 ; Admin Dose 1 MG; Start 01/12/17 at 10:00 Clopidogrel Bisulfate (plaVIX) 75 mg DAILY PO Last administered on 01/14/17 08 :57; Admin Dose 75 MG; Start 01/13/17 at 15:30 Fluticasone Propionate (Flonase 0.05% Nasal) 1 spray BID NASAL Last administered on 01/14/17 08:57; Admin Dose 1 SPRAY; Start 01/14/17 at 09:00; Stop 01/17/17 at 12:00 Carvedilol (Coreg) 50 mg BID PO ; Start 01/14/17 at 21:00 Lisinopril (Zestril) 40 mg DAILY PO Last administered on 01/14/17 12:00; Admin Dose 40 MG; Start 01/14/17 at 11:00 Alprazolam (Xanax) 0.25 mg BID NGT Last administered on 01/14/17 12:58; Admin Dose 0.25 MG; Start 01/14/17 at 12:00 Nicotine (Nicoderm 14 Mg/ 24hr) 1 patch DAILY TRANSDERM Last administered on 13:57; Admin Dose 1 PATCH; Start 01/14/17 at 13:00 Nifedipine (Procardia Xl) 60 mg BID PO ; Start 01/14/17 at 21:00 Hydralazine HCl (Apresoline) 50 mg Q8 PO ; Start 01/14/17 at 22:00 Minoxidil (Loniten) 2.5 mg DAILY PO Last administered on 01/14/17 17:14; Admin Dose 2.5 MG; Start 01/14/17 at 17:00 ELHAM PALOMO NP Jan 14, 2017 18:39
[2017-01-14] MEDS ORDERED: AMLODIPINE 10 MG TAB PO SCH (21:00)
[2017-01-14] MEDS: NIFEdipine (XL) 60 MG TAB PO SCH (21:03)
[2017-01-14] MEDS: ATORVASTATIN 80 MG TAB PO SCH (21:03)
[2017-01-14] MEDS: HYDROmorphONE 1 MG/ML SYG IV PRN (22:25)
[2017-01-15] VITALS (53 sets, daily range): BP systolic 93–181; BP diastolic 56–142; PULSE 64–93; RESP 15–34
[2017-01-15] MEDS: ALBUTEROL/IPRATROPIUM (NEB) 3 ML AMP NEB SCH ×6 (00:02→21:13)
[2017-01-15] MEDS: morphine 2 MG INJ IV PRN ×4 (01:39→23:43)
[2017-01-15 06:12] LABS: ADD SCAN DIFF NO
[2017-01-15 06:19] LABS: BASOPHILS % 0.4 % (0.0-2.0); EOSINOPHILS # 0.3 10^3/ul (0.0-0.5); EOSINOPHILS % 2.7 % (0.0-7.0); HEMATOCRIT 37.7 % (42.0-52.0); HEMOGLOBIN 12.6 g/dl (14.0-18.0); LYMPHOCYTES # 1.6 10^3/ul (0.8-2.9); LYMPHOCYTES % 14.3 % (15.0-51.0); MEAN CORPUSCULAR HEMOGLOBIN 30.2 pg (29.0-33.0); MEAN CORPUSCULAR HGB CONC 33.4 g/dl (32.0-37.0); MEAN CORPUSCULAR VOLUME 90.4 fl (82.0-101.0); MEAN PLATELET VOLUME 12.1 fl (7.4-10.4); MONOCYTES % 8.6 % (0.0-11.0); NEUTROPHIL # 8.3 10^3/ul (1.6-7.5); NEUTROPHILS % 73.3 % (39.0-77.0); PLATELET COUNT 313 10^3/UL (140-415); RED BLOOD COUNT 4.17 10^6/ul (4.70-6.10); WHITE BLOOD COUNT 11.3 10^3/ul (4.8-10.8)
[2017-01-15] MEDS: PANTOPRAZOLE 40 MG INJ IV SCH (06:37)
[2017-01-15] MEDS: FUROSEMIDE 20 MG INJ IV SCH ×2 (06:38→17:37)
[2017-01-15 06:48] LABS: ALBUMIN 4.7 g/dl (3.3-4.9); ALBUMIN/GLOBULIN RATIO 1.56; BILIRUBIN,INDIRECT 0.3 mg/dl (0-1.1); BILIRUBIN,TOTAL 0.3 mg/dl (0.2-1.3); CREATININE 1.45 mg/dl (0.61-1.24); MAGNESIUM 2.3 mg/dl (1.7-2.5); POTASSIUM 5.3 mmol/L (3.5-5.1); TOTAL PROTEIN 7.7 g/dl (6.1-8.1)
[2017-01-15] MEDS: NIFEdipine (XL) 60 MG TAB PO SCH ×2 (09:00→20:19)
[2017-01-15] MEDS: SPIRONOLACTONE 25 MG TAB PO SCH (10:04)
[2017-01-15] MEDS: ASPIRIN (EC) 325 MG TAB PO SCH (10:04)
[2017-01-15] MEDS: ACETYLCYSTEINE 600 MG CAP PO SCH ×2 (10:04→20:17)
[2017-01-15] MEDS: NICOTINE (14 MG/24 HR) PATCH TRANSDERM SCH (10:04)
[2017-01-15] MEDS: LISINOPRIL 20 MG TAB PO SCH (10:04)
[2017-01-15] MEDS: MINOXIDIL 2.5 MG TAB PO SCH (10:05)
[2017-01-15] MEDS: CLOPIDOGREL 75 MG TAB PO SCH (10:06)
[2017-01-15] MEDS: ENOXAPARIN 40 MG/0.4 ML SYG SC SCH (10:07)
[2017-01-15] MEDS: FLUTICASONE 0.05% 16 GM NAS SPRAY NASAL SCH ×2 (10:14→20:17)
[2017-01-15] MEDS: ALPRAZOLAM 0.25 MG TAB NGT SCH ×2 (10:15→20:19)
--- NOTE | 2017-01-15 11:45 | PN ---
DATE: 01/15/2017 CARDIOLOGY FOLLOWUP PROGRESS NOTE SUBJECTIVE: Discussed with the staff. Rhythm was reviewed. The patient remains in sinus rhythm. He feels much better now. He has been on nitroglycerin drip overnight. His blood pressure medicati on has been changed to Procardia and also minoxidil as well. Blood pressure currently better. He s aid that he has less agitation. With addition of extra medication including minoxidil, his blood pr essure has come down. This morning it was actually around 100. MEDICATIONS: Reviewed as per medication reconciliation which was personally reviewed. He has also been placed on Xanax b.i.d. He was discussed with multiple physicians overnight including ____. OBJECTIVE: VITAL SIGNS: Temperature 100, heart rate of 78, blood pressure 111/56, respiration rate of 28, satu rating 94%. HEENT: Normocephalic, atraumatic. Obese gentleman in no acute distress. Pupils are equal. NECK: Supple, no JVD noted. CARDIOVASCULAR: Regular rate and rhythm, systolic murmur, grade I. PULMONARY: With no wheezes heard. Minimal rhonchi at the base. GASTROINTESTINAL: Soft, nontender, obese. EXTREMITIES: No significant lower extremity edema. VASCULAR: Right upper extremity at the IV site edema is noted. Left side is the site of the angiog cuca. No significant abnormality noted. NEUROLOGIC: Awake, alert. PSYCHIATRIC: Appears to be calm at this point. LABORATORY: Sodium 138, potassium 5.3, BUN of 28, creatinine 1.45, glucose 150. ProBNP of 617. ASSESSMENT AND PLAN: 1. [id number] myocardial infarction. 2. Status post percutaneous coronary intervention of the right coronary artery/PDA. 3. Status post cerebrovascular accident. 4. Hypertensive urgency. 5. History of coronary artery disease in the past and percutaneous coronary intervention. 6. Dyslipidemia. 7. Morbid obesity. RECOMMENDATIONS: I will hold off on the minoxidil. We will continue the rest of his cardiac medica tions. Titrate off of the nitroglycerin drip. Aspirin will be continued. Plavix will be continued for now. More than 36 minutes of critical care time was spent managing this patient excluding any procedures. Dictated By: SRI RIVERS/CARMINA Conf#: [id number] DID#: [id number] CC: WHIT BINGHAM MD;*End*
[2017-01-15] MEDS: HYDROmorphONE 1 MG/ML SYG IV PRN ×2 (13:31→20:19)
--- NOTE | 2017-01-15 15:49 | PN ---
Date/Time of Note Date/Time of Note DATE: 01/15/17 TIME: 15:47 Assessment/Plan VTE Prophylaxis VTE Prophylaxis Intervention: other Lines/Catheters IV [facility] Peripheral IV Urinary Cath still in place: No Assessment/Plan Chief Complaint/Hosp Course IMPRESSION: 1. Patient has acute malignant hypertension.better 2. Ischemic heart disease or myocardial infarction. 3. History of coronary artery disease. 4. Pulmonary edema. 5. Infiltrate. 6. Acute kidney injury. 7. Coronary artery disease and stent placement. 8. Lactic acidosis. 9. Systemic inflammatory response syndrome 10 cva 11 hyperkalemia plan per cardio bp meds antibiotic kayexalate tele Problems: Subjective 24 Hr Interval Summary Respiratory: no complaints Cardiovascular: no complaints Gastrointestinal: no complaints Exam/Review of Systems Vital Signs Vitals Vital Signs Date Time Temp Pulse Resp B/P Pulse Ox O2 Delivery O2 Flow Rate FiO2 01/15/17 12:34 73 20 96 21 01/15/17 09:00 111/56 Room Air 01/15/17 08:00 100.0 Intake and Output 01/14/17 01/14/17 01/15/17 15:00 23:00 07:00 Intake Total 510 ml 202 ml 466 ml Output Total 1500 ml 1200 ml 600 ml Balance -990 ml -998 ml -134 ml Exam Neck: supple Respiratory: clear to auscultation Cardiovascular: regular rate and rhythm Gastrointestinal: soft Musculoskeletal: nl extremities to inspection Extremities: normal pulses Results Result Diagram: 01/15/17 0513 01/15/17 0513 Results 24 hrs Laboratory Tests Test 01/15/17 05:13 White Blood Count 11.3 H Red Blood Count 4.17 L Hemoglobin 12.6 L Hematocrit 37.7 L Mean Corpuscular Volume 90.4 Mean Corpuscular Hemoglobin 30.2 Mean Corpuscular Hemoglobin Concent 33.4 Red Cell Distribution Width 13.0 Platelet Count 313 # Mean Platelet Volume 12.1 H Neutrophils % 73.3 Lymphocytes % 14.3 L Monocytes % 8.6 Eosinophils % 2.7 Basophils % 0.4 Nucleated Red Blood Cells % 0.0 Neutrophils # 8.3 H Lymphocytes # 1.6 Monocytes # 1.0 H Eosinophils # 0.3 Basophils # 0.0 Nucleated Red Blood Cells # 0.0 Sodium Level 138 Potassium Level 5.3 H Chloride Level 98 Carbon Dioxide Level 29 Anion Gap 16 Blood Urea Nitrogen 28 H Creatinine 1.45 H Glucose Level 150 Calcium Level 10.0 Magnesium Level 2.3 Total Bilirubin 0.3 Direct Bilirubin 0.00 Indirect Bilirubin 0.3 Aspartate Amino Transf (AST/SGOT) 30 Alanine Aminotransferase (ALT/SGPT) 49 Alkaline Phosphatase 79 B-Type Natriuretic Peptide 617 H Total Protein 7.7 # Albumin 4.7 Globulin 3.00 Albumin/Globulin Ratio 1.56 Medications Medications Current Medications Ondansetron HCl (Zofran Inj) 4 mg Q6H PRN IV NAUSEA AND/OR VOMITING Last administered on 01/11/17 05:21; Admin Dose 4 MG; Start 01/09/17 at 23:00 Nitroglycerin (Nitroglycerin (Sl Tab) 0.4 Mg) 1 tab Q5M PRN SL CHEST PAIN Last administered on 01/11/17 20:16; Admin Dose 1 TAB; Start 01/09/17 at 23:00 Acetaminophen (Tylenol Tab) 650 mg Q6H PRN PO PAIN LEVEL 1-3 OR FEVER Last administered on 01/11/17 19:57; Admin Dose 650 MG; Start 01/09/17 at 23:00 Morphine Sulfate (morphine) 2 mg Q4H PRN IV MILD TO MODERATE Last administered on 01/15/17 10:09; Admin Dose 2 MG; Start 01/09/17 at 23:00 Docusate Sodium (Colace) 100 mg Q12H PRN PO CONSTIPATION; Start 01/09/17 at 23: 00 Magnesium Hydroxide (Milk Of Mag) 30 ml DAILY PRN PO CONSTIPATION Last administered on 01/11/17 05:29; Admin Dose 30 ML; Start 01/09/17 at 23:00 Bisacodyl (Dulcolax) 5 mg DAILY PRN PO CONSTIPATION; Start 01/09/17 at 23:00 Pantoprazole (Protonix Iv) 40 mg DAILY@06 IV Last administered on 01/15/17 06: 37; Admin Dose 40 MG; Start 01/10/17 at 06:00 Enoxaparin Sodium (Lovenox) 40 mg DAILY SC Last administered on 01/15/17 10:07 ; Admin Dose 40 MG; Start 01/10/17 at 09:00 Hydralazine HCl (Apresoline) 20 mg Q6 PRN IV sbp>170 Last administered on 16:54; Admin Dose 20 MG; Start 01/09/17 at 23:00 Furosemide (Lasix) 20 mg BID@,18 IV Last administered on 01/15/17 06:38; Admin Dose 20 MG; Start 01/10/17 at 06:00 Aspirin (Ecotrin) 325 mg DAILY PO Last administered on 01/15/17 10:04; Admin Dose 325 MG; Start 01/10/17 at 11:00 Spironolactone (Aldactone) 25 mg DAILY PO Last administered on 01/15/17 10:04 ; Admin Dose 25 MG; Start 01/11/17 at 09:00 Hydromorphone HCl (Dilaudid) 1 mg Q4H PRN IV SEVERE PAIN Last administered on 13:31; Admin Dose 1 MG; Start 01/12/17 at 00:30 Atorvastatin Calcium (Lipitor) 80 mg HS PO Last administered on 01/14/17 21:03 ; Admin Dose 80 MG; Start 01/11/17 at 21:00 Acetylcysteine (Nac) 600 mg BID PO Last administered on 01/15/17 10:04; Admin Dose 600 MG; Start 01/12/17 at 09:00 Lorazepam (Ativan) 1 mg Q6H PRN IV ANXIETY Last administered on 01/14/17 10:00 ; Admin Dose 1 MG; Start 01/12/17 at 10:00 Clopidogrel Bisulfate (plaVIX) 75 mg DAILY PO Last administered on 01/15/17 10 :06; Admin Dose 75 MG; Start 01/13/17 at 15:30 Fluticasone Propionate (Flonase 0.05% Nasal) 1 spray BID NASAL Last administered on 01/15/17 10:14; Admin Dose 1 SPRAY; Start 01/14/17 at 09:00; Stop 01/17/17 at 12:00 Carvedilol (Coreg) 50 mg BID PO Last administered on 01/15/17 10:05; Admin Dose 50 MG; Start 01/14/17 at 21:00 Lisinopril (Zestril) 40 mg DAILY PO Last administered on 01/15/17 10:04; Admin Dose 40 MG; Start 01/14/17 at 11:00 Alprazolam (Xanax) 0.25 mg BID NGT Last administered on 01/15/17 10:15; Admin Dose 0.25 MG; Start 01/14/17 at 12:00 Nicotine (Nicoderm 14 Mg/ 24hr) 1 patch DAILY TRANSDERM Last administered on 10:04; Admin Dose 1 PATCH; Start 01/14/17 at 13:00 Nifedipine (Procardia Xl) 60 mg BID PO Last administered on 01/15/17 09:00; Admin Dose 60 MG; Start 01/14/17 at 21:00 Hydralazine HCl (Apresoline) 50 mg Q8 PO Last administered on 01/15/17 15:00; Admin Dose 50 MG; Start 01/14/17 at 22:00 Sodium Polystyrene Sulfonate (Kayexalate) 15 gm ONCE ONCE PO ; Start 01/15/17 at 16:00; Stop 01/15/17 at 16:01; Status WHIT ARANGO MD Jan 15, 2017 15:48
[2017-01-15] MEDS ORDERED: NA POLYST SULFON 15 GM/60 ML BTL PO ONE (16:00)
--- NOTE | 2017-01-15 16:11 | RADRPT ---
PROCEDURE: XR Chest. CLINICAL INDICATION: Chest pain TECHNIQUE: AP view of the chest was performed. COMPARISON: January 09, 2017 FINDINGS: There is stable moderate cardiomegaly. There is improved vascular congestion. No signs of pleural f luid or pneumothorax are seen. The osseous structures and soft tissues are unremarkable. IMPRESSION: Stable moderate cardiomegaly. Improved fluid status. No acute infiltrate. RPTAT: QQ .Didi Martinez MD, MD Date Time Electronically viewed and signed by .Didi Martinez MD, MD on 01/15/2017 16:11 .F/
[2017-01-15] MEDS: ATORVASTATIN 80 MG TAB PO SCH (20:17)
[2017-01-15 21:37] LABS: CALCIUM 10.2 mg/dl (8.4-10.2); CREATININE 1.61 mg/dl (0.61-1.24); POTASSIUM 5.3 mmol/L (3.5-5.1)
[2017-01-16] VITALS (14 sets, daily range): BP systolic 101–168; BP diastolic 52–101; PULSE 71–95; RESP 16–20
[2017-01-16] MEDS: hydrALAzine 20 MG INJ IV PRN (01:41)
[2017-01-16] MEDS: HYDROmorphONE 1 MG/ML SYG IV PRN ×3 (01:43→22:36)
[2017-01-16] MEDS: ALBUTEROL/IPRATROPIUM (NEB) 3 ML AMP NEB SCH ×6 (01:49→20:50)
[2017-01-16] MEDS: PANTOPRAZOLE 40 MG INJ IV SCH (05:34)
[2017-01-16] MEDS: FUROSEMIDE 20 MG INJ IV SCH ×2 (05:35→17:33)
[2017-01-16] MEDS: ASPIRIN (EC) 325 MG TAB PO SCH (08:07)
[2017-01-16] MEDS: FLUTICASONE 0.05% 16 GM NAS SPRAY NASAL SCH ×2 (08:07→20:12)
[2017-01-16] MEDS: NICOTINE (14 MG/24 HR) PATCH TRANSDERM SCH (08:08)
[2017-01-16] MEDS: ACETYLCYSTEINE 600 MG CAP PO SCH (08:08)
[2017-01-16] MEDS: CLOPIDOGREL 75 MG TAB PO SCH (08:09)
[2017-01-16] MEDS: ENOXAPARIN 40 MG/0.4 ML SYG SC SCH (08:16)
[2017-01-16] MEDS: NIFEdipine (XL) 60 MG TAB PO SCH ×2 (08:23→20:13)
[2017-01-16] MEDS: SPIRONOLACTONE 25 MG TAB PO SCH (08:24)
[2017-01-16] MEDS: ALPRAZOLAM 0.25 MG TAB NGT SCH ×2 (08:24→20:04)
[2017-01-16] MEDS: LISINOPRIL 20 MG TAB PO SCH (08:24)
[2017-01-16 09:32] LABS: CALCIUM 9.9 mg/dl (8.4-10.2); CREATININE 1.75 mg/dl (0.61-1.24); POTASSIUM 5.2 mmol/L (3.5-5.1)
[2017-01-16] MEDS: morphine 2 MG INJ IV PRN (15:08)
--- NOTE | 2017-01-16 17:46 | PN ---
Date/Time of Note Date/Time of Note DATE: 01/16/17 TIME: 17:45 Assessment/Plan VTE Prophylaxis VTE Prophylaxis Intervention: other Lines/Catheters IV Catheter Type (from [facility]): Peripheral IV Urinary Cath still in place: No Assessment/Plan Chief Complaint/Hosp Course IMPRESSION: 1. Patient has acute malignant hypertension.better 2. Ischemic heart disease or myocardial infarction. 3. History of coronary artery disease. 4. Pulmonary edema. 5. Infiltrate. 6. Acute kidney injury. 7. Coronary artery disease and stent placement. 8. Lactic acidosis. 9. Systemic inflammatory response syndrome 10 cva 11 hyperkalemia plan per cardio bp meds antibiotic kayexalate tele PT OT Problems: Subjective 24 Hr Interval Summary Cardiovascular: no complaints Gastrointestinal: no complaints Genitourinary: no complaints Musculoskeletal: no complaints Exam/Review of Systems Vital Signs Vitals Vital Signs Date Time Temp Pulse Resp B/P Pulse Ox O2 Delivery O2 Flow Rate FiO2 01/16/17 16:27 75 01/16/17 15:16 98.0 18 121/61 96 01/16/17 08:19 21 01/15/17 16:30 Room Air Intake and Output 01/15/17 01/15/17 01/16/17 15:00 23:00 07:00 Intake Total 280 ml 120 ml 250 ml Output Total 1750 ml 850 ml 2200 ml Balance -1470 ml -730 ml -1950 ml Exam Neck: supple Respiratory: clear to auscultation Cardiovascular: regular rate and rhythm Gastrointestinal: soft Musculoskeletal: nl extremities to inspection Extremities: normal pulses Results Result Diagram: 01/15/17 0513 01/16/17 0744 Results 24 hrs Laboratory Tests Test 01/15/17 20:58 01/16/17 07:44 Sodium Level 137 137 Potassium Level 5.3 H 5.2 H Chloride Level 98 100 Carbon Dioxide Level 27 24 Anion Gap 17 H 18 H Blood Urea Nitrogen 30 H 36 H Creatinine 1.61 H 1.75 H Glucose Level 106 # 125 Calcium Level 10.2 9.9 Medications Medications Current Medications Ondansetron HCl (Zofran Inj) 4 mg Q6H PRN IV NAUSEA AND/OR VOMITING Last administered on 01/11/17t 05:21; Admin Dose 4 MG; Start 01/09/17 at 23:00 Nitroglycerin (Nitroglycerin (Sl Tab) 0.4 Mg) 1 tab Q5M PRN SL CHEST PAIN Last administered on 01/11/17 20:16; Admin Dose 1 TAB; Start 01/09/17 at 23:00 Acetaminophen (Tylenol Tab) 650 mg Q6H PRN PO PAIN LEVEL 1-3 OR FEVER Last administered on 01/11/17 19:57; Admin Dose 650 MG; Start 01/09/17 at 23:00 Morphine Sulfate (morphine) 2 mg Q4H PRN IV MILD TO MODERATE Last administered on 01/16/17 15:08; Admin Dose 2 MG; Start 01/09/17 at 23:00 Docusate Sodium (Colace) 100 mg Q12H PRN PO CONSTIPATION Last administered on 08:25; Admin Dose 100 MG; Start 01/09/17 at 23:00 Magnesium Hydroxide (Milk Of Mag) 30 ml DAILY PRN PO CONSTIPATION Last administered on 01/11/17 05:29; Admin Dose 30 ML; Start 01/09/17 at 23:00 Bisacodyl (Dulcolax) 5 mg DAILY PRN PO CONSTIPATION Last administered on 15:52; Admin Dose 5 MG; Start 01/09/17 at 23:00 Pantoprazole (Protonix Iv) 40 mg DAILY@06 IV Last administered on 01/16/17 05: 34; Admin Dose 40 MG; Start 01/10/17 at 06:00 Enoxaparin Sodium (Lovenox) 40 mg DAILY SC Last administered on 01/16/17 08:16 ; Admin Dose 40 MG; Start 01/10/17 at 09:00 Hydralazine HCl (Apresoline) 20 mg Q6 PRN IV sbp>170 Last administered on 01:41; Admin Dose 20 MG; Start 01/09/17 at 23:00 Furosemide (Lasix) 20 mg BID@06,18 IV Last administered on 01/16/17 17:33; Admin Dose 20 MG; Start 01/10/17 at 06:00 Aspirin (Ecotrin) 325 mg DAILY PO Last administered on 01/16/17 08:07; Admin Dose 325 MG; Start 01/10/17 at 11:00 Spironolactone (Aldactone) 25 mg DAILY PO Last administered on 01/16/17 08:24 ; Admin Dose 25 MG; Start 01/11/17 at 09:00 Hydromorphone HCl (Dilaudid) 1 mg Q4H PRN IV SEVERE PAIN Last administered on 08:08; Admin Dose 1 MG; Start 01/12/17 at 00:30 Atorvastatin Calcium (Lipitor) 80 mg HS PO Last administered on 01/15/17 20:17 ; Admin Dose 80 MG; Start 01/11/17 at 21:00 Acetylcysteine (Nac) 600 mg BID PO Last administered on 01/16/17 08:08; Admin Dose 600 MG; Start 01/12/17 at 09:00 Lorazepam (Ativan) 1 mg Q6H PRN IV ANXIETY Last administered on 01/14/17 10:00 ; Admin Dose 1 MG; Start 01/12/17 at 10:00 Clopidogrel Bisulfate (plaVIX) 75 mg DAILY PO Last administered on 01/16/17 08 :09; Admin Dose 75 MG; Start 01/13/17 at 15:30 Fluticasone Propionate (Flonase 0.05% Nasal) 1 spray BID NASAL Last administered on 01/16/17 08:07; Admin Dose 1 SPRAY; Start 01/14/17 at 09:00; Stop 01/17/17 at 12:00 Carvedilol (Coreg) 50 mg BID PO Last administered on 01/16/17 08:24; Admin Dose 50 MG; Start 01/14/17 at 21:00 Lisinopril (Zestril) 40 mg DAILY PO Last administered on 01/16/17 08:24; Admin Dose 40 MG; Start 01/14/17 at 11:00 Alprazolam (Xanax) 0.25 mg BID NGT Last administered on 01/16/17 08:24; Admin Dose 0.25 MG; Start 01/14/17 at 12:00 Nicotine (Nicoderm 14 Mg/ 24hr) 1 patch DAILY TRANSDERM Last administered on 08:08; Admin Dose 1 PATCH; Start 01/14/17 at 13:00 Nifedipine (Procardia Xl) 60 mg BID PO Last administered on 01/16/17 08:23; Admin Dose 60 MG; Start 01/14/17 at 21:00 Hydralazine HCl (Apresoline) 50 mg Q8 PO Last administered on 01/16/17t 14:33; Admin Dose 50 MG; Start 01/14/17 at 22:00 Miscellaneous Information 1 ea NOTE XX ; Start 01/15/17 at 16:30 WHIT BINGHAM MD Jan 16, 2017 17:46
[2017-01-16] MEDS ORDERED: NA POLYST SULFON 15 GM/60 ML BTL PR ONE (18:00)
[2017-01-16] MEDS ORDERED: NA POLYST SULFON 15 GM/60 ML BTL PO ONE (18:30)
--- NOTE | 2017-01-16 19:06 | PN ---
DATE: 01/16/2017 CARDIOLOGY FOLLOWUP SUBJECTIVE: Discussed with the staff. Rhythm strip reviewed. The patient has no chest pain or pre ssure. No palpitation. Denies any orthopnea or PND to me. He is breathing better. Still had anxi ety but better. MEDICATIONS: Reviewed. PHYSICAL EXAMINATION: VITAL SIGNS: Temperature 98, heart rate of 75, blood pressure 121/61, respirations 18, saturating 9 6%. HEENT: Normocephalic, atraumatic. Obese gentleman. Pupils are equal. CARDIOVASCULAR: Regular rate and rhythm. PULMONARY: With no wheezes or rhonchi. GASTROINTESTINAL: Soft, nontender. Obese. EXTREMITIES: With no significant lower extremity edema. NEUROLOGIC: Awake and alert. PSYCHIATRIC: Appeared to be calm. LABORATORY: Sodium 137, potassium 5.2, BUN of 37, creatinine 1.75, glucose 125. ASSESSMENT AND PLAN: 1. Tey-RL-aldcoibfm myocardial infarction. 2. Status post percutaneous transluminal coronary angioplasty of the right coronary artery/posterio r descending artery. 3. Status post cerebrovascular accident. 4. Urgency, currently improved. 5. Previous percutaneous coronary intervention of the left anterior descending. 6. Dyslipidemia. 7. Dizziness, anxiety. 8. Renal insufficiency. 9. Hyperkalemia. RECOMMENDATIONS: I will stop the Lasix. At this point, he does not appear to be fluid overload. W ould follow, managed as needed. ____ was given. Lisinopril will be decreased due to hyperkalemia. We will continue with the Coreg. Continue the rest of his cardiac care. Digoxin level will be chec ked again tomorrow and will check electrolytes tomorrow. Physical therapy as tolerated. Dictated By: SRI DE GUZMAN MD AV/CARMINA Conf#: [id number] DID#: [id number] CC: WHIT BINGHAM MD;*EndCC*
[2017-01-16] MEDS: LORAZEPAM 2 MG INJ IV PRN (20:04)
[2017-01-16] MEDS: ATORVASTATIN 80 MG TAB PO SCH (20:11)
[2017-01-17] VITALS (12 sets, daily range): BP systolic 106–149; BP diastolic 53–82; PULSE 71–100; RESP 17–20
[2017-01-17] MEDS: ALBUTEROL/IPRATROPIUM (NEB) 3 ML AMP NEB SCH ×6 (01:00→20:41)
[2017-01-17] MEDS: PANTOPRAZOLE 40 MG INJ IV SCH (06:23)
[2017-01-17 07:03] LABS: ADD SCAN DIFF NO
[2017-01-17 07:16] LABS: BASOPHIL # 0.1 10^3/ul (0.0-0.1); BASOPHILS % 0.4 % (0.0-2.0); EOSINOPHILS # 0.3 10^3/ul (0.0-0.5); EOSINOPHILS % 2.5 % (0.0-7.0); HEMATOCRIT 37.6 % (42.0-52.0); HEMOGLOBIN 12.8 g/dl (14.0-18.0); LYMPHOCYTES # 1.9 10^3/ul (0.8-2.9); LYMPHOCYTES % 14.7 % (15.0-51.0); MEAN CORPUSCULAR HEMOGLOBIN 30.3 pg (29.0-33.0); MEAN CORPUSCULAR VOLUME 89.1 fl (82.0-101.0); MEAN PLATELET VOLUME 11.8 fl (7.4-10.4); MONOCYTE # 1.4 10^3/ul (0.3-0.9); MONOCYTES % 11.3 % (0.0-11.0); NEUTROPHIL # 8.9 10^3/ul (1.6-7.5); NEUTROPHILS % 70.1 % (39.0-77.0); PLATELET COUNT 323 10^3/UL (140-415); RED BLOOD COUNT 4.22 10^6/ul (4.70-6.10); RED CELL DISTRIBUTION WIDTH 13.4 % (11.5-14.5); WHITE BLOOD COUNT 12.6 10^3/ul (4.8-10.8)
[2017-01-17 07:26] LABS: ALBUMIN 4.5 g/dl (3.3-4.9); ALBUMIN/GLOBULIN RATIO 1.45; BILIRUBIN,INDIRECT 0.4 mg/dl (0-1.1); BILIRUBIN,TOTAL 0.4 mg/dl (0.2-1.3); CALCIUM 9.6 mg/dl (8.4-10.2); CREATININE 1.88 mg/dl (0.61-1.24); POTASSIUM 4.7 mmol/L (3.5-5.1); TOTAL PROTEIN 7.6 g/dl (6.1-8.1)
[2017-01-17] MEDS: CLOPIDOGREL 75 MG TAB PO SCH (09:49)
[2017-01-17] MEDS: FLUTICASONE 0.05% 16 GM NAS SPRAY NASAL SCH (09:49)
[2017-01-17] MEDS: NIFEdipine (XL) 60 MG TAB PO SCH ×2 (09:50→20:18)
[2017-01-17] MEDS: ASPIRIN (EC) 325 MG TAB PO SCH (09:50)
[2017-01-17] MEDS: SPIRONOLACTONE 25 MG TAB PO SCH (09:51)
[2017-01-17] MEDS: LISINOPRIL 20 MG TAB PO SCH (09:51)
[2017-01-17] MEDS: ENOXAPARIN 40 MG/0.4 ML SYG SC SCH (09:53)
[2017-01-17] MEDS: ALPRAZOLAM 0.25 MG TAB NGT SCH ×2 (09:58→20:17)
[2017-01-17] MEDS: NICOTINE (14 MG/24 HR) PATCH TRANSDERM SCH (09:59)
[2017-01-17] MEDS: HYDROmorphONE 1 MG/ML SYG IV PRN ×3 (10:25→23:37)
--- NOTE | 2017-01-17 17:24 | PN ---
DATE: 01/17/2017 CARDIOLOGY FOLLOWUP PROGRESS NOTE SUBJECTIVE: Discussed with the staff and with Dr. Bingham. The patient is feeling much better. No c hest pain or pressure. No palpitation. MEDICATIONS: Reviewed. PHYSICAL EXAMINATION: VITAL SIGNS: Temperature 98.3, heart rate of 71, blood pressure 106/____, respiratory rate of 20. HEENT: Normocephalic, atraumatic. Obese gentleman. CARDIOVASCULAR: Regular rate and rhythm. PULMONARY: With no wheezes. GASTROINTESTINAL: Soft, nontender. EXTREMITIES: No edema. NEUROLOGIC: Awake and alert. PSYCHIATRIC: Appeared to be calm. LABORATORY: Shows WBC of 12.6, hemoglobin 12.8, platelets 323. Sodium 138, potassium 4.7, BUN of 4 0, creatinine 1.88, glucose 106. ProBNP of 312. ASSESSMENT AND PLAN: 1. Hypertensive urgency. 2. Cmo-TI-ltxrlzene myocardial infarction. 3. Status post percutaneous transluminal coronary angioplasty of the posterior descending artery. 4. Status post cerebrovascular accident. 5. Dyslipidemia. 6. Renal insufficiency. 7. Hyperkalemia. RECOMMENDATIONS: We will continue with the current cardiac care. The patient has been scheduled fo r outpatient followup with me. Importance of compliance with the medication has been explained to t he patient. Renal management and treatment as per Dr. Bingham and associates. Dictated By: SRI DE GUZMAN MD AV/CARMINA Conf#: [id number] DID#: [id number] CC: WHIT BINGHAM MD;*EndCC*
[2017-01-17] MEDS: ATORVASTATIN 80 MG TAB PO SCH (20:17)
[2017-01-18] VITALS (8 sets, daily range): BP systolic 118–130; BP diastolic 58–76; PULSE 70–80; RESP 18–22
--- NOTE | 2017-01-18 00:23 | PN ---
Date/Time of Note Date/Time of Note DATE: 01/18/17 TIME: 00:22 Assessment/Plan VTE Prophylaxis VTE Prophylaxis Intervention: other Lines/Catheters IV [facility] Type (from [facility] [place] Urinary Cath still in place: No Assessment/Plan Chief Complaint/Hosp Course IMPRESSION: 1. Patient w htn better 2. Ischemic heart disease or myocardial infarction. 3. History of coronary artery disease. 4. Pulmonary edema. 5. Infiltrate. 6. Acute kidney injury. 7. Coronary artery disease and stent placement. 8. Lactic acidosis. 9. Systemic inflammatory response syndrome 10 cva 11 hyperkalemia plan per cardio bp meds antibiotic ck cbc tele PT OT Problems: Subjective 24 Hr Interval Summary Respiratory: no complaints Cardiovascular: no complaints Exam/Review of Systems Vital Signs Vitals Vital Signs Date Time Temp Pulse Resp B/P Pulse Ox O2 Delivery O2 Flow Rate FiO2 01/17/17 23:59 98.3 83 18 119/69 94 01/17/17 20:41 21 01/15/17 16:30 Room Air Intake and Output 01/17/17 01/17/17 01/18/17 15:00 23:00 07:00 Intake Total 1200 ml Output Total 650 ml 1950 ml Balance -650 ml -750 ml Exam Neck: supple Respiratory: clear to auscultation Cardiovascular: regular rate and rhythm Gastrointestinal: soft Musculoskeletal: nl extremities to inspection Extremities: normal pulses Results Result Diagram: 01/17/17 0630 01/17/17 0630 Results 24 hrs Laboratory Tests Test 01/17/17 06:30 White Blood Count 12.6 H Red Blood Count 4.22 L Hemoglobin 12.8 L Hematocrit 37.6 L Mean Corpuscular Volume 89.1 Mean Corpuscular Hemoglobin 30.3 Mean Corpuscular Hemoglobin Concent 34.0 Red Cell Distribution Width 13.4 Platelet Count 323 Mean Platelet Volume 11.8 H Neutrophils % 70.1 Lymphocytes % 14.7 L Monocytes % 11.3 H Eosinophils % 2.5 Basophils % 0.4 Nucleated Red Blood Cells % 0.0 Neutrophils # 8.9 H Lymphocytes # 1.9 Monocytes # 1.4 H Eosinophils # 0.3 Basophils # 0.1 Nucleated Red Blood Cells # 0.0 Sodium Level 138 Potassium Level 4.7 Chloride Level 98 Carbon Dioxide Level 27 Anion Gap 18 H Blood Urea Nitrogen 40 H Creatinine 1.88 H Glucose Level 106 Hemoglobin A1c 5.5 Calcium Level 9.6 Total Bilirubin 0.4 Direct Bilirubin 0.00 Indirect Bilirubin 0.4 Aspartate Amino Transf (AST/SGOT) 33 Alanine Aminotransferase (ALT/SGPT) 44 Alkaline Phosphatase 81 B-Type Natriuretic Peptide 312 H Total Protein 7.6 Albumin 4.5 Globulin 3.10 Albumin/Globulin Ratio 1.45 Digoxin Level < 0.4 L Medications Medications Current Medications Ondansetron HCl (Zofran Inj) 4 mg Q6H PRN IV NAUSEA AND/OR VOMITING Last administered on 01/11/17 05:21; Admin Dose 4 MG; Start 01/09/17 at 23:00 Nitroglycerin (Nitroglycerin (Sl Tab) 0.4 Mg) 1 tab Q5M PRN SL CHEST PAIN Last administered on 01/11/17 20:16; Admin Dose 1 TAB; Start 01/09/17 at 23:00 Acetaminophen (Tylenol Tab) 650 mg Q6H PRN PO PAIN LEVEL 1-3 OR FEVER Last administered on 01/11/17 19:57; Admin Dose 650 MG; Start 01/09/17 at 23:00 Morphine Sulfate (morphine) 2 mg Q4H PRN IV MILD TO MODERATE Last administered on 01/16/17 15:08; Admin Dose 2 MG; Start 01/09/17 at 23:00 Docusate Sodium (Colace) 100 mg Q12H PRN PO CONSTIPATION Last administered on 08:25; Admin Dose 100 MG; Start 01/09/17 at 23:00 Magnesium Hydroxide (Milk Of Mag) 30 ml DAILY PRN PO CONSTIPATION Last administered on 01/11/17 05:29; Admin Dose 30 ML; Start 01/09/17 at 23:00 Bisacodyl (Dulcolax) 5 mg DAILY PRN PO CONSTIPATION Last administered on 15:52; Admin Dose 5 MG; Start 01/09/17 at 23:00 Pantoprazole (Protonix Iv) 40 mg DAILY@06 IV Last administered on 01/17/17 06: 23; Admin Dose 40 MG; Start 01/10/17 at 06:00 Enoxaparin Sodium (Lovenox) 40 mg DAILY SC Last administered on 01/17/17 09:53 ; Admin Dose 40 MG; Start 01/10/17 at 09:00 Hydralazine HCl (Apresoline) 20 mg Q6 PRN IV sbp>170 Last administered on 01:41; Admin Dose 20 MG; Start 01/09/17 at 23:00 Aspirin (Ecotrin) 325 mg DAILY PO Last administered on 01/17/17 09:50; Admin Dose 325 MG; Start 01/10/17 at 11:00 Spironolactone (Aldactone) 25 mg DAILY PO Last administered on 01/17/17 09:51 ; Admin Dose 25 MG; Start 01/11/17 at 09:00 Hydromorphone HCl (Dilaudid) 1 mg Q4H PRN IV SEVERE PAIN Last administered on 23:37; Admin Dose 1 MG; Start 01/12/17 at 00:30 Atorvastatin Calcium (Lipitor) 80 mg HS PO Last administered on 01/17/17 20:17 ; Admin Dose 80 MG; Start 01/11/17 at 21:00 Lorazepam (Ativan) 1 mg Q6H PRN IV ANXIETY Last administered on 01/16/17 20:04 ; Admin Dose 1 MG; Start 01/12/17 at 10:00 Clopidogrel Bisulfate (plaVIX) 75 mg DAILY PO Last administered on 01/17/17 09 :49; Admin Dose 75 MG; Start 01/13/17 at 15:30 Carvedilol (Coreg) 50 mg BID PO Last administered on 01/17/17 20:18; Admin Dose 50 MG; Start 01/14/17 at 21:00 Alprazolam (Xanax) 0.25 mg BID NGT Last administered on 01/17/17 20:17; Admin Dose 0.25 MG; Start 01/14/17 at 12:00 Nicotine (Nicoderm 14 Mg/ 24hr) 1 patch DAILY TRANSDERM Last administered on 09:59; Admin Dose 1 PATCH; Start 01/14/17 at 13:00 Nifedipine (Procardia Xl) 60 mg BID PO Last administered on 01/17/17 20:18; Admin Dose 60 MG; Start 01/14/17 at 21:00 Hydralazine HCl (Apresoline) 50 mg Q8 PO Last administered on 01/17/17 23:36; Admin Dose 50 MG; Start 01/14/17 at 22:00 Miscellaneous Information 1 ea NOTE XX ; Start 01/15/17 at 16:30 Lisinopril (Zestril) 20 mg DAILY PO Last administered on 01/17/17t 09:51; Admin Dose 20 MG; Start 01/17/17 at 09:00 WHIT BINGHAM MD Jan 18, 2017 00:23
[2017-01-18] MEDS: ALBUTEROL/IPRATROPIUM (NEB) 3 ML AMP NEB SCH ×4 (01:00→13:00)
[2017-01-18] MEDS: HYDROmorphONE 1 MG/ML SYG IV PRN (03:35)
[2017-01-18] MEDS: PANTOPRAZOLE 40 MG INJ IV SCH (05:29)
[2017-01-18 06:15] LABS: ADD SCAN DIFF NO
[2017-01-18 06:34] LABS: BASOPHIL # 0.1 10^3/ul (0.0-0.1); BASOPHILS % 0.5 % (0.0-2.0); EOSINOPHILS # 0.2 10^3/ul (0.0-0.5); HEMATOCRIT 36.7 % (42.0-52.0); HEMOGLOBIN 12.4 g/dl (14.0-18.0); LYMPHOCYTES # 1.9 10^3/ul (0.8-2.9); LYMPHOCYTES % 15.8 % (15.0-51.0); MEAN CORPUSCULAR HEMOGLOBIN 30.4 pg (29.0-33.0); MEAN CORPUSCULAR HGB CONC 33.8 g/dl (32.0-37.0); MEAN PLATELET VOLUME 11.9 fl (7.4-10.4); MONOCYTE # 1.4 10^3/ul (0.3-0.9); MONOCYTES % 11.2 % (0.0-11.0); NEUTROPHIL # 8.4 10^3/ul (1.6-7.5); NEUTROPHILS % 69.5 % (39.0-77.0); PLATELET COUNT 323 10^3/UL (140-415); RED BLOOD COUNT 4.08 10^6/ul (4.70-6.10); RED CELL DISTRIBUTION WIDTH 13.4 % (11.5-14.5); WHITE BLOOD COUNT 12.1 10^3/ul (4.8-10.8)
[2017-01-18 07:49] LABS: ALBUMIN 4.6 g/dl (3.3-4.9); ALBUMIN/GLOBULIN RATIO 1.64; BILIRUBIN,INDIRECT 0.5 mg/dl (0-1.1); BILIRUBIN,TOTAL 0.5 mg/dl (0.2-1.3); CALCIUM 9.9 mg/dl (8.4-10.2); CREATININE 1.71 mg/dl (0.61-1.24); POTASSIUM 5.3 mmol/L (3.5-5.1); TOTAL PROTEIN 7.4 g/dl (6.1-8.1)
[2017-01-18] MEDS: NICOTINE (14 MG/24 HR) PATCH TRANSDERM SCH (09:38)
[2017-01-18] MEDS: CLOPIDOGREL 75 MG TAB PO SCH (09:38)
[2017-01-18] MEDS: NIFEdipine (XL) 60 MG TAB PO SCH (09:39)
[2017-01-18] MEDS: ASPIRIN (EC) 325 MG TAB PO SCH (09:39)
[2017-01-18] MEDS: LISINOPRIL 20 MG TAB PO SCH (09:39)
[2017-01-18] MEDS: ENOXAPARIN 40 MG/0.4 ML SYG SC SCH (09:44)
[2017-01-18] MEDS: morphine 2 MG INJ IV PRN (09:49)
[2017-01-18] MEDS: ALPRAZOLAM 0.25 MG TAB NGT SCH (09:49)
--- NOTE | 2017-01-18 09:50 | PN ---
DATE: 01/18/2017 CARDIOLOGY FOLLOWUP PROGRESS NOTE SUBJECTIVE: Discussed with the staff. Rhythm strip was reviewed. The patient remains in sinus rhy thm. No chest pain or pressure. No palpitation. Was able to walk around yesterday. Urine output ____ per his report. He is feeling better now. MEDICATIONS: Reviewed. PHYSICAL EXAMINATION: VITAL SIGNS: Temperature 98.5, heart rate of 79, blood pressure 118/58, respiratory rate of 19, sat urating 98%. HEENT: Normocephalic, atraumatic. Obese gentleman in no acute distress. CARDIOVASCULAR: Regular rate and rhythm. PULMONARY: With no wheezes now. GASTROINTESTINAL: Soft, nontender. EXTREMITIES: No significant lower extremity edema. NEUROLOGIC: Awake and alert. PSYCHIATRIC: Appears to be calm. LABORATORY: Sodium 136, potassium 5.3, BUN of 34, creatinine of 1.75, glucose of 102. WBC of 12.1, hemoglobin 12.4, platelets of 323. I's and O's 2300 in and 4400 out. ASSESSMENT AND PLAN: 1. Gdv-BW-nneopfhun myocardial infarction. 2. Ischemic cardiomyopathy. 3. Congestive heart failure. 4. Acute renal failure. 5. Anxiety. 6. Status post percutaneous transluminal coronary angioplasty of the right coronary artery. 7. Dyslipidemia. 8. Hyperkalemia. RECOMMENDATIONS: I will discontinue the Aldactone given his hyperkalemia. We will continue with th e rest of his cardiac care. Discharge planning is in process. The patient has been scheduled to [facility] as an outpatient. Dictated By: SRI DE GUZMAN MD AV/CARMINA Conf#: [id number] DID#: [id number] CC: WHIT BINGHAM MD;*EndCC*
[2017-01-18] MEDS ORDERED: NA POLYST SULFON 15 GM/60 ML BTL PO ONE (11:30)
--- NOTE | 2017-01-18 11:58 | PDOCDIS ---
Discharge Instructions CONDITION Patient Condition: Stable HOME CARE INSTRUCTIONS: Special Diet: mechanical soft/chopped food ACTIVITY: Activity Restrictions: Slowly Increase Activity FOLLOW UP/APPOINTMENTS Appointments f/u dr mason renal [address] españa 2 wks see own pcp 1 wk WHIT BINGHAM MD Jan 18, 2017 11:58
[2017-01-18] MEDS ORDERED: Nicotine (14 Mg/24 Hr) TRANSDERM (12:01)
[2017-01-18] MEDS ORDERED: NIT4 SL (12:01)
[2017-01-18] MEDS ORDERED: LISI20TA11 PO (12:01)
[2017-01-18] MEDS ORDERED: CLOP75TA28 PO (12:01)
[2017-01-18] MEDS ORDERED: NIFE60TA7 PO (12:01)
[2017-01-18] MEDS ORDERED: CARV25TA79 PO (12:01)
[2017-01-18] MEDS ORDERED: HYDR-3672 PO (12:01)
[2017-01-18] MEDS ORDERED: ATOR80TA75 PO (12:01)
[2017-01-18] MEDS ORDERED: BISA5TAB6 PO (12:01)
[2017-01-18] MEDS ORDERED: ASPI325T32 PO (12:01)
[2017-01-18] MEDS ORDERED: LORAZEPAM 1 MG TAB NGT PRN (14:00)
[2017-01-19] MEDS ORDERED: LANSOPRAZOLE 30 MG CAP NGT SCH (06:00)
--- NOTE | 2017-01-19 19:24 | QN ---
Documentation Comment [id number] WIHT BINGHAM MD Jan 19, 2017 19:24
--- NOTE | 2017-01-20 00:16 | DS ---
DATE OF ADMISSION: 01/09/2017 DATE OF DISCHARGE: 01/18/2017 HOSPITAL COURSE: The patient was admitted with a diagnosis of hypertensive urgency and left-sided w eakness. The patient had chest pain. History of CAD, history of dyslipidemia, history of hypertens ion, congestive heart failure, history of tobacco use, history of marijuana use, noncompliance with medication. This was the impression of Dr. Ventura. The patient was noted to have acute stroke with left-sided weakness. Dr. Sergey Yin was called to see this patient in consultation. The patient has a brain scan done. The patient was also followed by Dr. Ventura and Dr. Sergey ayala for non-ST myocardial infarction, hypertensive emergency, history of CAD and percutaneous hurtado ry intervention. The patient was seen by Dr. Sergey Yin, and Dr. Rincon's impression and re commendations were followed. The patient also has anemia, leukocytosis and electrolyte imbalance, p ossible underlying CKD. The patient was monitored very closely in ICU. Blood pressure medicine wer e given IV and p.o. 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 The patient has neck MRA, shows focal narrowing of the right intradural vertebral artery. Ultrasound of the kidney done shows bilateral kidneys are unremarkabl e. The patient has MRI of the brain, shows patient has study limited by motion artifact. CT brain shows unremarkable CT of the brain. The patient's symptoms are resolving. The patient's leukocytos is is stable. The patient's chest x-ray done shows persistent moderate cardiomegaly with aortic tor tuosity and with pulmonary vasculature reflecting pulmonary venous obstruction. The patient's sympt oms are improving. The patient's blood pressure is getting better. The patient is ambulating, and the patient's speech and weakness are improving. The patient was cleared by the consultants to be d ischarged home. DISCHARGE DIAGNOSES: Include the patient has: 1. Non-ST elevation myocardial infarction. 2. Ischemic cardiomyopathy. 3. Congestive heart failure. 4. Acute renal failure. 5. Anxiety. 6. Status post percutaneous transluminal coronary angioplasty of the right coronary artery. 7. Dyslipidemia. 8. Hyperkalemia. 9. Leukocytosis. 10. Anemia. 11. Atherosclerotic heart disease. 12. Hypertensive urgency. 13. Non-ST myocardial infarction, positive troponin, status post left heart catheterization and rig ht angioplasty of the ostium of the PDA. Left main artery is large. Left anterior descending is la rge vessel. Mid stent is patent. Left circumflex is large, appears to be normal. Right coronary a rtery large. DISCHARGE MEDICATIONS: Include: 1. Aspirin. 2. Lipitor. 3. Bisacodyl. 4. Coreg. 5. Plavix. 6. Hydralazine. 7. Lisinopril. 8. Nifedipine. 9. Nitroglycerin. The patient to follow up as an outpatient with PCP, Dr. Bingham for Nephrology and Dr. Ventura for Card iology. The patient is stable at the time of discharge. Dictated By: WHIT BINGHAM MD BS/NTS Conf#: [id number] DID#: [id number]
== END 2017-01-18 14:23 | disposition home or self-care (01) | DRG 250 ==
LOC: E/R 17:21 → ICU 19:26 → TEL 01-15 16:51
PROVIDERS: ADMIT Internal Medicine Nephrology; ATTEND Internal Medicine Nephrology
PROC: 02703ZZ Dilation of Coronary Artery, One Artery, Percutaneous Approach (ICD-10-PCS; principal; 2017-01-13 13:00)
PROC: 4A023N7 Measurement of Cardiac Sampling and Pressure, Left Heart, Percutaneous Approach (ICD-10-PCS; 2017-01-13 13:00)
DX: I16.1 Hypertensive emergency (principal); I21.4 Non-ST elevation (NSTEMI) myocardial infarction; R65.11 Systemic inflammatory response syndrome (SIRS) of non-infectious origin with acute organ dysfunction; I50.43 Acute on chronic combined systolic (congestive) and diastolic (congestive) heart failure; G93.40 Encephalopathy, unspecified; I63.211 Cerebral infarction due to unspecified occlusion or stenosis of right vertebral artery; R13.10 Dysphagia, unspecified; N17.9 Acute kidney failure, unspecified; E87.2 Acidosis; G81.94 Hemiplegia, unspecified affecting left nondominant side; L03.114 Cellulitis of left upper limb; I25.10 Atherosclerotic heart disease of native coronary artery without angina pectoris; I25.2 Old myocardial infarction; R20.0 Anesthesia of skin; F12.90 Cannabis use, unspecified, uncomplicated; E78.5 Hyperlipidemia, unspecified; Z91.14 Patient's other noncompliance with medication regimen; R29.701 NIHSS score 1; I11.0 Hypertensive heart disease with heart failure; Z87.891 Personal history of nicotine dependence; Z95.5 Presence of coronary angioplasty implant and graft; I25.5 Ischemic cardiomyopathy; F41.9 Anxiety disorder, unspecified; E87.5 Hyperkalemia; D72.829 Elevated white blood cell count, unspecified; D64.9 Anemia, unspecified; E66.9 Obesity, unspecified; Z68.38 Body mass index [BMI] 38.0-38.9, adult; R45.1 Restlessness and agitation; G47.30 Sleep apnea, unspecified
CPT/HCPCS: 36415; 70450; 70544; 70549; 70551; 71010; 74230; 76775; 80048; 80053; 80061; 80162; 80307; 81001; 81003; 82550; 82553; 82570; 83036; 83605; 83735; 83880; 84300; 84439; 84443; 84484; 85025; 85610; 85730; 87040; 87081; 87086; 89190; 92526; 92610; 92611; 92982; 93005; 93306; 93458; 94640; 94664; 96365; 96366; 96367; 96368; 96375; 96376; 97161; J1940; C1725; C1769; C1887; C9113; J0360; J1170; J1327; J1644; J1650; J2060; J2250; J2270; J2405; J2543; J3010; J3370; J7030; J7060; Q9967

== ENCOUNTER → 2017-08-24 | Outpatient (CLI) | END | disposition home or self-care (01) ==